=== PATIENT | female | born 1945 | race African-American/Black ===

== ENCOUNTER → 2016-04-17 | Outpatient (CLI) | payer MEDICARE ==
[2015-11-16 10:45] VITALS: BP 139/72
[~2016-04-17] MED LIST: ASCO10002 PO; DILT120C PO; LATANOPROST; LETR2.5T18 PO; METO25TA4 PO; MULT-245 PO; NAPR220C4 PO; PSYL0.5214 PO
--- NOTE | 2016-04-17 12:16 | RAD ---
2 view CXR: Clinical indications: Right-sided chest pain for 3 weeks. Pain wraps around the side to the back. Comparison: March 25, 2013. Findings: No acute lung infiltrate or pleural effusion or pulmonary edema or lung mass or pneumothorax is seen. Mild cardiomegaly is evident. The pulmonary vasculature, mediastinum and both princess are unremarkable. Enchondroma or bone infarct of the proximal left humerus is seen. Impression: No acute lung infiltrate. Mild cardiomegaly..
== END | disposition home or self-care (01) ==
LOC: RAD 11:41
PROVIDERS: ATTEND Internal Medicine Pulmonary Disease
DX: I51.7 Cardiomegaly (principal); R07.89 Other chest pain; D16.02 Benign neoplasm of scapula and long bones of left upper limb
CPT/HCPCS: 71020

== ENCOUNTER → 2016-09-18 | Outpatient (CLI) | payer OTHER ==
[2015-11-16 10:45] VITALS: BP 139/72
[~2016-09-18] MED LIST changes: -PSYL0.5214 PO; +PSYL0.5215 PO
--- NOTE | 2016-09-18 14:26 | RAD ---
Chest radiograph 09/18/2016 at 1300 hours Indication: chest pain. Pain in the right lower posterior rib margin Technique: PA and lateral views of the chest are provided. Comparison: 04/17/2016 Technique: Cardiomediastinal silhouette is within normal limits. No pleural effusions, pulmonary vascular congestion or pneumothorax. The lungs are clear. Mild degenerative changes of the thoracic spine. Mild osteoarthrosis of the acromioclavicular joints bilaterally. Impression: No acute cardiopulmonary process.
== END | disposition home or self-care (01) ==
LOC: RAD 12:43
PROVIDERS: ATTEND Internal Medicine Pulmonary Disease
DX: R07.9 Chest pain, unspecified (principal); M47.894 Other spondylosis, thoracic region; M19.012 Primary osteoarthritis, left shoulder; M19.011 Primary osteoarthritis, right shoulder
CPT/HCPCS: 71020

== ENCOUNTER 2016-11-07 12:42 | Observation (INO) | payer OTHER ==
[~2016-11-07] VITALS: Ht 157.5 cm; Wt 88.5 kg
[2016-11-07] MEDS ORDERED: HYDROmorphone 2 MG/ML VIAL IV PRN (13:45)
[2016-11-07] MEDS ORDERED: IV NORMAL SALINE 500ML BAG 500 ML IV ONE (14:00)
[2016-11-07 14:06] LABS: BASO # 0.1 x10^3/uL (0.0-0.2); BASO % 1 % (0-3); EOS % 1 % (0-3); HEMATOCRIT 37.5 % (36.0-47.0); HEMOGLOBIN 12.7 g/dL (12.0-15.5); LYMPH # 2.7 x10^3/uL (1.0-4.8); LYMPH % 30 % (24-48); MEAN CORPUSCULAR HEMOGLOBIN 27 pg (25-35); MEAN CORPUSCULAR HGB CONC 34 g/dL (31-37); MEAN CORPUSCULAR VOLUME 79 fL (79-100); MONO % 5 % (0-9); NEUT % 63 % (31-73); PLATELET COUNT 209 x10^3/uL (140-400); RED BLOOD COUNT 4.73 x10^6/uL (3.50-5.40); RED CELL DISTRIBUTION WIDTH 18.7 % (11.5-14.5)
[2016-11-07 14:22] LABS: CREATININE 0.8 mg/dL (0.6-1.0); GFR 85.3
--- NOTE | 2016-11-07 14:37 | RAD ---
Exam performed: CT scan of the head without contrast. Date of Service: 9116. Comparison: MRI brain from 10/23/15. Clinical History: Headache for 2 years, history of glaucoma and left breast cancer. Technique: Helical acquisitions are obtained from the foramen magnum to the vertex without intravenous administration of contrast. Findings: The ventricles are midline without evidence of dilatation. Mild atrophy is noted. Normal bustamante-white differentiation is maintained. There is no extra axial fluid collection, intraparenchymal hemorrhage or mass lesion. The visualized portions of the orbits, paranasal sinuses and the mastoid air cells appear clear. The calvarium is intact. Impression: 1. No acute intracranial process detected. PQRS Compliance Statement: One or more of the following individualized dose reduction techniques were utilized for this examination: 1. Automated exposure control 2. Adjustment of the mA and/or kV according to patient size 3. Use of iterative reconstruction technique
--- NOTE | 2016-11-07 14:49 | PHYS DOC ---
Past Medical History Past Medical History: Arthritis, Cancer, Diverticulosis, GERD, Glaucoma, Hypertension, Other Additional Past Medical Histor: Left breast ca, right upper lung nodule , CHRONIC HEADACHE Past Surgical History: Cancer Surgery, Hysterectomy Additional Past Surgical Histo: LEFT MASECTOMY Alcohol Use: None Drug Use: None Adult General Chief Complaint Chief Complaint: HEADACHE HPI HPI 71-year-old female presenting to the emergency department today with left-sided headache is nonradiating intermittent and is been present for last week. She has a history of chronic headaches which is similar to this one for which she sees our neurologist Dr. danielle. She has not taken anything for the headache in the last 7 days. She denies numbness weakness or tingling. She denies vision changes. She denies fevers chills or neck stiffness. Review of systems is negative for shortness of breath abdominal pain nausea vomiting. All other review of systems is negative unless otherwise noted in history of present illness. ED course: 71-year-old female presenting to the emergency department with headache similar to her previous headaches. Vital signs unremarkable other than mild chronic hypertension. Given the patient's age a head CT along with some basic blood work was obtained which was unremarkable. She was given IV fluids with hydromorphone for pain which improved her symptoms. She was subsequent discharged home. I considered temporal arteritis however the patient has nontender temporal artery, and her headache is not originating from the congregational. I feel this to be less likely given the patient's symptomatology. I also considered subarachnoid hemorrhage which I feel is less likely. I considered meningitis and felt this to be less likely as well. Discussing the case with our neurologist is been seeing the patient in clinic she is concerned that the patient may have temporal arteritis. Given her concern, the patient will be admitted for biopsy of the temporal artery. Review of Systems Review of Systems SEE ABOVE. Current Medications Current Medications Current Medications Medications (Trade) Dose Ordered Sig/Vicente Start Time Stop Time Status Last Admin Dose Admin Hydromorphone HCl (Dilaudid) 0.5 mg PRN Q30MIN PRN 11/07/16 13:45 11/07/16 16:07 DC 11/07/16 14:24 0.5 MG Morphine Sulfate 2 mg PRN Q2HR PRN 11/07/16 16:00 11/08/16 15:59 DC Ondansetron HCl (Zofran) 4 mg PRN Q8HRS PRN 11/07/16 16:00 11/08/16 15:59 DC Sodium Chloride 1,000 ml @ 125 mls/hr Q8H 11/07/16 16:00 11/08/16 15:59 DC 11/08/16 14:00 125 MLS/HR Allergies Allergies Physical Exam Physical Exam SEE ABOVE Constitutional: Well developed, well nourished, no acute distress, non-toxic appearance. [] HENT: Normocephalic, atraumatic, bilateral external ears normal, oropharynx moist, no oral exudates, nose normal. []Nontender temporal arteries bilaterally. Eyes: PERRLA, EOMI, conjunctiva normal, no discharge. [] Neck: Normal range of motion, no tenderness, supple, no stridor. [] Negative Brudzinski's sign. Negative Kernig sign. Normal range of motion of the neck. Cardiovascular:Heart rate regular rhythm, no murmur [] Lungs & Thorax: Bilateral breath sounds clear to auscultation [] Abdomen: Bowel sounds normal, soft, no tenderness, no masses, no pulsatile masses. [] Skin: Warm, dry, no erythema, no rash. [] Back: No tenderness, no CVA tenderness. [] Extremities: No tenderness, no cyanosis, no clubbing, ROM intact, no edema. [] Neurologic: Mental status: Awake oriented and alert x3 Cranial nerves: Extraocular movements intact, eyebrows pelon bilaterally smile symmetric, uvula elevation, shoulder shrug intact, tongue protrusion normal DTRs: 2+ Sensation: equal and normal in all extremities Strength: 5/5 in upper and lower extremities bilaterally Psychologic: Affect normal, judgement normal, mood normal. [] Current Patient Data Vital Signs Vital Signs Date Time Temp Pulse Resp B/P (MAP) Pulse Ox O2 Delivery O2 Flow Rate FiO2 11/07/16 14:54 86 18 142/88 (106) 97 Room Air 11/07/16 13:35 98.3 98.3 Lab Values Laboratory Tests Test 11/07/16 13:15 11/07/16 13:55 Erythrocyte Sedimentation Rate 54 (0-25) H Prothrombin Time 12.9 SEC (11.7-14.0) Prothrombin Time INR 1.0 (0.8-1.1) White Blood Count 9.0 x10^3/uL (4.0-11.0) Red Blood Count 4.73 x10^6/uL (3.50-5.40) Hemoglobin 12.7 g/dL (12.0-15.5) Hematocrit 37.5 % (36.0-47.0) Mean Corpuscular Volume 79 fL (79-100) Mean Corpuscular Hemoglobin 27 pg (25-35) Mean Corpuscular Hemoglobin Concent 34 g/dL (31-37) Red Cell Distribution Width 18.7 % (11.5-14.5) H Platelet Count 209 x10^3/uL (140-400) Neutrophils (%) (Auto) 63 % (31-73) Lymphocytes (%) (Auto) 30 % (24-48) Monocytes (%) (Auto) 5 % (0-9) Eosinophils (%) (Auto) 1 % (0-3) Basophils (%) (Auto) 1 % (0-3) Neutrophils # (Auto) 5.7 x10^3uL (1.8-7.7) Lymphocytes # (Auto) 2.7 x10^3/uL (1.0-4.8) Monocytes # (Auto) 0.5 x10^3/uL (0.0-1.1) Eosinophils # (Auto) 0.0 x10^3/uL (0.0-0.7) Basophils # (Auto) 0.1 x10^3/uL (0.0-0.2) Sodium Level 138 mmol/L (136-145) Potassium Level 4.0 mmol/L (3.5-5.1) Chloride Level 103 mmol/L (98-107) Carbon Dioxide Level 32 mmol/L (21-32) Anion Gap 3 (6-14) L Blood Urea Nitrogen 14 mg/dL (7-20) Creatinine 0.8 mg/dL (0.6-1.0) Estimated GFR (Cockcroft-Gault) 85.3 Glucose Level 95 mg/dL (70-99) Calcium Level 9.0 mg/dL (8.5-10.1) Laboratory Tests 11/07/16 13:55 Laboratory Tests 11/07/16 13:55 EKG EKG [] Radiology/Procedures Radiology/Procedures [] Course & Med Decision Making Course & Med Decision Making Pertinent Labs and Imaging studies reviewed. (See chart for details) [] Dragon Disclaimer Dragon Disclaimer This electronic medical record was generated, in whole or in part, using a voice recognition dictation system. Departure Departure Impression: Primary Impression: Headache Disposition: ADMITTED INPATIENT Condition: STABLE Referrals: RASHEEDA CORBIN MD (PCP) Patient Instructions: General Headache Without Cause GOPI SALAS MD Nov 07, 2016 14:49
[2016-11-07] MEDS ORDERED: ONDANSETRON PF 4 MG/2 ML VIAL. IV ONE (15:45)
[2016-11-07] MEDS ORDERED: MORPHINE SULFATE 2 MG/ML DISP.SYRIN. IV PRN ×2 (16:00→16:15)
[2016-11-07] MEDS ORDERED: ONDANSETRON PF 4 MG/2 ML VIAL. IV PRN ×2 (16:00→16:15)
--- NOTE | 2016-11-07 16:13 | PDOC1 ---
History and Physical Date of Admission Date of Admission 11/07/16 Identification/Chief Complaint Chief Complaint headache Problems: Source Source: Chart review, Patient History of Present Illness History of Present Illness HPI HPI 71-year-old female presenting to the emergency department today for headache. Pt said she has been having headache for years , following with dr. Giron,worse in the past week. pt got dilaudid in ER which made her feel drowsy and not willing to talk to me much. The headache is usually on the top of head, or left side. Now the pain is 6/10, tight. She also feels left face numbness. right fingers some numbness, otherwise no blurry vision or other neurologic deficit. . She denies fevers chills or neck stiffness. No V, diarrhea, cough, chest pain , or sob. + nausea. pt usually only takes tylenol for headache, and codein makes her rash. head ct NEG. Past Medical History Cardiovascular: HTN Past Surgical History Past Surgical History left Breast post lumpectomy Family History Family History: Hypertension Social History Smoke: No ALCOHOL: none Drugs: None Current Problem List Problem List Problems Medical Problems: (1) Headache Status: Acute Current Medications Current Medications Current Medications Medications (Trade) Dose Ordered Sig/Vicente Start Time Stop Time Status Last Admin Dose Admin Hydromorphone HCl (Dilaudid) 0.5 mg PRN Q30MIN PRN 11/07/16 13:45 11/07/16 14:24 0.5 MG Morphine Sulfate 2 mg PRN Q2HR PRN 11/07/16 16:00 11/08/16 15:59 Ondansetron HCl (Zofran) 4 mg PRN Q8HRS PRN 11/07/16 16:00 11/08/16 15:59 Sodium Chloride 1,000 ml @ 125 mls/hr Q8H 11/07/16 16:00 11/08/16 15:59 Allergies Allergies Allergies Coded Allergies Type Severity Reaction Last Updated Verified codeine Allergy Intermediate Rash 01/21/15 Yes ROS Review of System CONSTITUTIONAL: No fever or chills EYES: No recent changes SKIN: No rash or itching CARDIOVASCULAR: No chest pain, syncope, palpitations, or edema RESPIRATORY: No SOB or cough GASTROINTESTINAL: No nausea, vomiting or abdominal pain NEUROLOGICAL: No headaches or weakness ENDOCRINE: No cold or heat intolerance GENITOURINARY: No urgency or frequency of urination MUSCULOSKELETAL: No back pain or joint pain LYMPHATICS: No enlarged lymph nodes PSYCHIATRIC: No anxiety or depression Physical Exam Physical Exam GEN.: No apparent distress. Alert and oriented. HEENT: Head is normocephalic, atraumatic. head no tenderness. NECK: Supple. LUNGS: Clear to auscultation. HEART: RRR, S1, S2 present. Peripheral pulses intact ABDOMEN: Soft, nontender. Positive bowel sounds. EXTREMITIES: Without any cyanosis. NEUROLOGIC: Normal speech, normal tone PSYCHIATRIC: Normal affect, normal mood. SKIN: No ulcerations Vitals Vitals Vital Signs Date Time Temp Pulse Resp B/P (MAP) Pulse Ox O2 Delivery O2 Flow Rate FiO2 11/07/16 14:54 86 18 142/88 (106) 97 Room Air 11/07/16 13:35 98.3 98.3 Labs Labs Laboratory Tests Test 11/07/16 13:55 White Blood Count 9.0 x10^3/uL (4.0-11.0) Red Blood Count 4.73 x10^6/uL (3.50-5.40) Hemoglobin 12.7 g/dL (12.0-15.5) Hematocrit 37.5 % (36.0-47.0) Mean Corpuscular Volume 79 fL (79-100) Mean Corpuscular Hemoglobin 27 pg (25-35) Mean Corpuscular Hemoglobin Concent 34 g/dL (31-37) Red Cell Distribution Width 18.7 % (11.5-14.5) Platelet Count 209 x10^3/uL (140-400) Neutrophils (%) (Auto) 63 % (31-73) Lymphocytes (%) (Auto) 30 % (24-48) Monocytes (%) (Auto) 5 % (0-9) Eosinophils (%) (Auto) 1 % (0-3) Basophils (%) (Auto) 1 % (0-3) Neutrophils # (Auto) 5.7 x10^3uL (1.8-7.7) Lymphocytes # (Auto) 2.7 x10^3/uL (1.0-4.8) Monocytes # (Auto) 0.5 x10^3/uL (0.0-1.1) Eosinophils # (Auto) 0.0 x10^3/uL (0.0-0.7) Basophils # (Auto) 0.1 x10^3/uL (0.0-0.2) Sodium Level 138 mmol/L (136-145) Potassium Level 4.0 mmol/L (3.5-5.1) Chloride Level 103 mmol/L (98-107) Carbon Dioxide Level 32 mmol/L (21-32) Anion Gap 3 (6-14) Blood Urea Nitrogen 14 mg/dL (7-20) Creatinine 0.8 mg/dL (0.6-1.0) Estimated GFR (Cockcroft-Gault) 85.3 Glucose Level 95 mg/dL (70-99) Calcium Level 9.0 mg/dL (8.5-10.1) Laboratory Tests Test 11/07/16 13:55 White Blood Count 9.0 x10^3/uL (4.0-11.0) Red Blood Count 4.73 x10^6/uL (3.50-5.40) Hemoglobin 12.7 g/dL (12.0-15.5) Hematocrit 37.5 % (36.0-47.0) Mean Corpuscular Volume 79 fL (79-100) Mean Corpuscular Hemoglobin 27 pg (25-35) Mean Corpuscular Hemoglobin Concent 34 g/dL (31-37) Red Cell Distribution Width 18.7 % (11.5-14.5) Platelet Count 209 x10^3/uL (140-400) Neutrophils (%) (Auto) 63 % (31-73) Lymphocytes (%) (Auto) 30 % (24-48) Monocytes (%) (Auto) 5 % (0-9) Eosinophils (%) (Auto) 1 % (0-3) Basophils (%) (Auto) 1 % (0-3) Neutrophils # (Auto) 5.7 x10^3uL (1.8-7.7) Lymphocytes # (Auto) 2.7 x10^3/uL (1.0-4.8) Monocytes # (Auto) 0.5 x10^3/uL (0.0-1.1) Eosinophils # (Auto) 0.0 x10^3/uL (0.0-0.7) Basophils # (Auto) 0.1 x10^3/uL (0.0-0.2) Sodium Level 138 mmol/L (136-145) Potassium Level 4.0 mmol/L (3.5-5.1) Chloride Level 103 mmol/L (98-107) Carbon Dioxide Level 32 mmol/L (21-32) Anion Gap 3 (6-14) Blood Urea Nitrogen 14 mg/dL (7-20) Creatinine 0.8 mg/dL (0.6-1.0) Estimated GFR (Cockcroft-Gault) 85.3 Glucose Level 95 mg/dL (70-99) Calcium Level 9.0 mg/dL (8.5-10.1) VTE Prophylaxis Ordered VTE Prophylaxis Devices: Yes VTE Pharmacological Prophylaxi: Yes Assessment/Plan Assessment/Plan intractable headache, 2/2 migraine flare? HTN glaucoma diverticulosis h/o Left BCa post sx chronic headache GERD plan; fu with dr. Giron, ESR pending, would like to rule out temp Arteritis, sx fu cont home meds pain control dvt ppx ELI BURNS MD Nov 07, 2016 16:13
[2016-11-07] MEDS ORDERED: traMADol 50 MG TABLET PO PRN (16:15)
[2016-11-07] MEDS ORDERED: ACETAMINOPHEN 325 MG TABLET. PO PRN (16:15)
[2016-11-07] MEDS ORDERED: DOCUSATE SODIUM 100 MG CAPSULE. PO PRN (16:15)
[2016-11-07] MEDS ORDERED: hydrALAZINE 20 MG/ML VIAL. IVP PRN (16:15)
[2016-11-07 16:56] LABS: PROTHROMBIN TIME PATIENT 12.9 SEC (11.7-14.0)
[2016-11-07] MEDS ORDERED: AMLO5TAB2 PO (17:20)
[2016-11-07] MEDS ORDERED: predniSONE 10 MG TABLET PO SCH (17:30)
[2016-11-07 18:30] VITALS: BP_SYST 123; BP_SYST 139; BP_DIAS 45; BP_DIAS 84
[2016-11-07 19:00] VITALS: BP 123/84
--- NOTE | 2016-11-07 20:47 | PDOC2 ---
NEUROLOGY CONSULT Date of Admission Date of Admission DATE: 11/07/16 TIME: 20:36 Reason for Consult Reason for Consult: IMPRESSION: Worsening of headaches. Pain in left orbital. Temporal A arteritis? Chronic headaches. HTN Anxiety. Elevated ESR. RECOMMENDATIONS/PLAN: Pain control. Consulted Surgery for left temporal A biopsy. Trial treatment with steroid can be started after biopsy. Tegretol as home regimen. HISTORY OF THE PRESENT ILLNESS: 71-y-old AA female patient with Hx of chronic pain in her left frontal and temporal head and pain behind left orbital area. She received extensive evaluation including brain MRI but no evidence of CVA or brain tumor.She was seen by ophthalmology and was said to have cataract and partial retinal detachment (?). She has increased pain in her left side of head and elevated ESR so temporal A arteritis needs to be ruled. Past Medical History Cardiovascular: HTN Past Surgical History left Breast post lumpectomy Family History Hypertension Social History Smoke: No ALCOHOL: none Drugs: None ALLERGY: Reviewed. REVIEW OF SYSTEMS: Constitutional: No malnutrition, weight loss, cachexia. Head: No traumatic brain or head injury. Skin: No edema, or rash. Ear: No infection. Eyes: No vision loss or color blindness. Nose: No bleeding or purulent discharges. Hearing: No hearing decrease. Neck: No injury. Cardiac: HTN. Pulmonary: No COPD. GI: No GI ulcer, GI bleeding. Urinary/genital: UTI. Endocrinologic: No cousin face, craniofacial dysmorphism, polydactyly, goiter. Skeletomuscular: No muscular atrophy, deformity. Neurological: see HP. Psychiatric: Denies drug use/abuse. Otherwise, not [id number] review of systems. PHYSICAL EXAMINATION: General appearance is in subacute distress. HEENT: Normocephalic and nontraumatic. Eyes, nose, ears, and throat are unremarkable. Neck is supple. No lymphadenopathy. No bruits are heard over the carotid artery. No crepitus. Cardiovascular: S1, S2, regular rate and rhythm. Pulmonary: Clear to auscultation bilaterally. Abdomen: Bowel sounds are positive. Abdomen is soft, nontender, and nondistended. Extremities: No rash, lesions, or edema. No restriction of range of motion NEUROLOGICAL EXAMINATION: Alert Oriented to time, place and person. PERRL. EOMI. CN: no focal findings. Muscle tone: within normal. Muscle strength: 5- DTR: 2 Plantar reflex: Flexor response bilaterally Gait: not examined in bed. Sensory exam: no abnormal findings. No acute cerebellar signs elicited. F-T-N test accurate. Current Medications Current Medications Current Medications Sodium Chloride 500 ml @ 500 mls/hr 1X ONCE IV Last administered on 11/07/16 14:25; Start 11/07/16 at 14:00; Stop 11/07/16 at 14:59; Status DC Hydromorphone HCl (Dilaudid) 0.5 mg PRN Q30MIN PRN IV SEVERE PAIN Last administered on 11/07/16 14:24; Start 11/07/16 at 13:45; Stop 11/07/16 at 16:07; Status DC Ondansetron HCl (Zofran) 4 mg 1X ONCE IV Last administered on 11/07/16 15:46; Start 11/07/16 at 15:45; Stop 11/07/16 at 15:46; Status DC Ondansetron HCl (Zofran) 4 mg PRN Q8HRS PRN IV NAUSEA/VOMITING; Start 11/07/16 at 16:00; Stop 11/08/16 at 15:59 Morphine Sulfate 2 mg PRN Q2HR PRN IV PAIN; Start 11/07/16 at 16:00; Stop at 15:59 Sodium Chloride 1,000 ml @ 125 mls/hr Q8H IV ; Start 11/07/16 at 16:00; Stop 11/08/16 at 15:59 Diltiazem HCl (Cardizem 24hr Cd) 120 mg DAILY PO ; Start 11/08/16 at 09:00 Acetaminophen (Tylenol) 650 mg PRN Q6HRS PRN PO FEVER; Start 11/07/16 at 16:15 Ondansetron HCl (Zofran) 4 mg PRN Q6HRS PRN IV NAUSEA/VOMITING; Start 11/07/16 at 16:15 Morphine Sulfate 2 mg PRN Q2HR PRN IV PAIN; Start 11/07/16 at 16:15 Tramadol HCl (Ultram) 50 mg PRN Q6HRS PRN PO PAIN; Start 11/07/16 at 16:15 Hydralazine HCl (Apresoline) 10 mg PRN Q4HRS PRN IVP ELEVATED BP, SEE COMMENTS ; Start 11/07/16 at 16:15 Docusate Sodium (Colace) 100 mg PRN DAILY PRN PO CONSTIPATION; Start 11/07/16 at 16:15 Heparin Sodium (Porcine) (Heparin Sq) 5,000 unit Q8HRS SQ ; Start 11/07/16 at 22: 00 Prednisone (Prednisone) 30 mg DAILY PO ; Start 11/07/16 at 17:30; Stop 11/07/16 at 17:47; Status DC Famotidine (Pepcid) 20 mg QHS PO ; Start 11/07/16 at 21:00 Active Scripts Active Reported Amlodipine Besylate 5 Mg Tablet 5 Mg PO HS Metamucil (Psyllium Husk) 0.52 Gm Capsule 0.52 Gm PO DAILY Allergies Allergies: Coded Allergies: codeine (Verified Allergy, Intermediate, Rash, 01/21/15) Vitals VITALS Vital Signs Date Time Temp Pulse Resp B/P (MAP) Pulse Ox O2 Delivery O2 Flow Rate FiO2 11/07/16 19:00 98.1 75 123/84 (97) 92 Room Air 98.1 11/07/16 18:30 18 Labs Labs Laboratory Tests Test 11/07/16 13:15 11/07/16 13:55 Erythrocyte Sedimentation Rate 54 (0-25) Prothrombin Time 12.9 SEC (11.7-14.0) Prothromb Time International Ratio 1.0 (0.8-1.1) White Blood Count 9.0 x10^3/uL (4.0-11.0) Red Blood Count 4.73 x10^6/uL (3.50-5.40) Hemoglobin 12.7 g/dL (12.0-15.5) Hematocrit 37.5 % (36.0-47.0) Mean Corpuscular Volume 79 fL (79-100) Mean Corpuscular Hemoglobin 27 pg (25-35) Mean Corpuscular Hemoglobin Concent 34 g/dL (31-37) Red Cell Distribution Width 18.7 % (11.5-14.5) Platelet Count 209 x10^3/uL (140-400) Neutrophils (%) (Auto) 63 % (31-73) Lymphocytes (%) (Auto) 30 % (24-48) Monocytes (%) (Auto) 5 % (0-9) Eosinophils (%) (Auto) 1 % (0-3) Basophils (%) (Auto) 1 % (0-3) Neutrophils # (Auto) 5.7 x10^3uL (1.8-7.7) Lymphocytes # (Auto) 2.7 x10^3/uL (1.0-4.8) Monocytes # (Auto) 0.5 x10^3/uL (0.0-1.1) Eosinophils # (Auto) 0.0 x10^3/uL (0.0-0.7) Basophils # (Auto) 0.1 x10^3/uL (0.0-0.2) Sodium Level 138 mmol/L (136-145) Potassium Level 4.0 mmol/L (3.5-5.1) Chloride Level 103 mmol/L (98-107) Carbon Dioxide Level 32 mmol/L (21-32) Anion Gap 3 (6-14) Blood Urea Nitrogen 14 mg/dL (7-20) Creatinine 0.8 mg/dL (0.6-1.0) Estimated GFR (Cockcroft-Gault) 85.3 Glucose Level 95 mg/dL (70-99) Calcium Level 9.0 mg/dL (8.5-10.1) Laboratory Tests Test 11/07/16 13:15 11/07/16 13:55 Erythrocyte Sedimentation Rate 54 (0-25) Prothrombin Time 12.9 SEC (11.7-14.0) Prothromb Time International Ratio 1.0 (0.8-1.1) White Blood Count 9.0 x10^3/uL (4.0-11.0) Red Blood Count 4.73 x10^6/uL (3.50-5.40) Hemoglobin 12.7 g/dL (12.0-15.5) Hematocrit 37.5 % (36.0-47.0) Mean Corpuscular Volume 79 fL (79-100) Mean Corpuscular Hemoglobin 27 pg (25-35) Mean Corpuscular Hemoglobin Concent 34 g/dL (31-37) Red Cell Distribution Width 18.7 % (11.5-14.5) Platelet Count 209 x10^3/uL (140-400) Neutrophils (%) (Auto) 63 % (31-73) Lymphocytes (%) (Auto) 30 % (24-48) Monocytes (%) (Auto) 5 % (0-9) Eosinophils (%) (Auto) 1 % (0-3) Basophils (%) (Auto) 1 % (0-3) Neutrophils # (Auto) 5.7 x10^3uL (1.8-7.7) Lymphocytes # (Auto) 2.7 x10^3/uL (1.0-4.8) Monocytes # (Auto) 0.5 x10^3/uL (0.0-1.1) Eosinophils # (Auto) 0.0 x10^3/uL (0.0-0.7) Basophils # (Auto) 0.1 x10^3/uL (0.0-0.2) Sodium Level 138 mmol/L (136-145) Potassium Level 4.0 mmol/L (3.5-5.1) Chloride Level 103 mmol/L (98-107) Carbon Dioxide Level 32 mmol/L (21-32) Anion Gap 3 (6-14) Blood Urea Nitrogen 14 mg/dL (7-20) Creatinine 0.8 mg/dL (0.6-1.0) Estimated GFR (Cockcroft-Gault) 85.3 Glucose Level 95 mg/dL (70-99) Calcium Level 9.0 mg/dL (8.5-10.1) TETO HADLEY MD Nov 07, 2016 20:47
[2016-11-07] MEDS: IV NORMAL SALINE 1000ML BAG 1,000 ML IV SCH ×2 (20:59→23:28)
[2016-11-07] MEDS ORDERED: FAMOTIDINE 20 MG TABLET. PO SCH (21:00)
[2016-11-07] MEDS: HEPARIN PF for SUB-Q USE 5,000 UNIT/0.5 ML VIAL. SQ SCH (21:05)
[2016-11-07 23:00] VITALS: BP 150/88
[2016-11-08 03:00] VITALS: BP 131/69
[2016-11-08] MEDS: HEPARIN PF for SUB-Q USE 5,000 UNIT/0.5 ML VIAL. SQ SCH ×3 (06:09→21:24)
[2016-11-08 06:49] LABS: BASO # 0.1 x10^3/uL (0.0-0.2); BASO % 1 % (0-3); EOS % 0 % (0-3); HEMATOCRIT 37.5 % (36.0-47.0); HEMOGLOBIN 12.7 g/dL (12.0-15.5); LYMPH # 3.4 x10^3/uL (1.0-4.8); LYMPH % 30 % (24-48); MEAN CORPUSCULAR HEMOGLOBIN 27 pg (25-35); MEAN CORPUSCULAR HGB CONC 34 g/dL (31-37); MEAN CORPUSCULAR VOLUME 79 fL (79-100); MONO % 6 % (0-9); NEUT % 63 % (31-73); PLATELET COUNT 193 x10^3/uL (140-400); RED BLOOD COUNT 4.74 x10^6/uL (3.50-5.40); RED CELL DISTRIBUTION WIDTH 18.5 % (11.5-14.5); WHITE BLOOD COUNT 11.6 x10^3/uL (4.0-11.0)
[2016-11-08 07:00] VITALS: BP 145/73
[2016-11-08 07:14] LABS: CALCIUM 8.7 mg/dL (8.5-10.1); CREATININE 0.6 mg/dL (0.6-1.0); GFR 118.9; POTASSIUM 3.8 mmol/L (3.5-5.1)
[2016-11-08] MEDS: IV NORMAL SALINE 1000ML BAG 1,000 ML IV SCH ×2 (08:00→14:00)
[2016-11-08] MEDS: PSYLLIUM HUSK (SUGAR FREE) 1 PKT PACKET PO SCH (10:00)
[2016-11-08 11:10] VITALS: BP 131/71
--- NOTE | 2016-11-08 13:10 | PDOC2 ---
CONSULT Date of Consult Date of Consult DATE: 11/08/16 TIME: 13:07 History of Present Illness Reason for Visit: The patient is a 71 year old female who was admitted with headaches. She reports left frontal and temporal headaches for quite some time. Neurology was consulted and a sed rate was found to be elevated. Surgery was consulted for a left temporal artery biopsy. Past Medical History Cardiovascular: HTN Past Surgical History Past Surgical History breast lumpectomy Family History Family History: Hypertension Social History No ALCOHOL: none Drugs: None Current Problem List Problem List Problems Medical Problems: (1) Headache Status: Acute Current Medications Current Medications Current Medications Sodium Chloride 500 ml @ 500 mls/hr 1X ONCE IV Last administered on 11/07/16 14:25; Start 11/07/16 at 14:00; Stop 11/07/16 at 14:59; Status DC Hydromorphone HCl (Dilaudid) 0.5 mg PRN Q30MIN PRN IV SEVERE PAIN Last administered on 11/07/16 14:24; Start 11/07/16 at 13:45; Stop 11/07/16 at 16:07; Status DC Ondansetron HCl (Zofran) 4 mg 1X ONCE IV Last administered on 11/07/16 15:46; Start 11/07/16 at 15:45; Stop 11/07/16 at 15:46; Status DC Ondansetron HCl (Zofran) 4 mg PRN Q8HRS PRN IV NAUSEA/VOMITING; Start 11/07/16 at 16:00; Stop 11/08/16 at 15:59 Morphine Sulfate 2 mg PRN Q2HR PRN IV PAIN; Start 11/07/16 at 16:00; Stop at 15:59 Sodium Chloride 1,000 ml @ 125 mls/hr Q8H IV Last administered on 11/07/16 20: 59; Start 11/07/16 at 16:00; Stop 11/08/16 at 15:59 Diltiazem HCl (Cardizem 24hr Cd) 120 mg DAILY PO ; Start 11/08/16 at 09:00; Stop 11/08/16 at 09:30; Status DC Acetaminophen (Tylenol) 650 mg PRN Q6HRS PRN PO FEVER; Start 11/07/16 at 16:15 Ondansetron HCl (Zofran) 4 mg PRN Q6HRS PRN IV NAUSEA/VOMITING; Start 11/07/16 at 16:15 Morphine Sulfate 2 mg PRN Q2HR PRN IV PAIN; Start 11/07/16 at 16:15 Tramadol HCl (Ultram) 50 mg PRN Q6HRS PRN PO PAIN; Start 11/07/16 at 16:15 Hydralazine HCl (Apresoline) 10 mg PRN Q4HRS PRN IVP ELEVATED BP, SEE COMMENTS ; Start 11/07/16 at 16:15 Docusate Sodium (Colace) 100 mg PRN DAILY PRN PO CONSTIPATION; Start 11/07/16 at 16:15 Heparin Sodium (Porcine) (Heparin Sq) 5,000 unit Q8HRS SQ Last administered on 11/08/16t 06:09; Start 11/07/16 at 22:00 Prednisone (Prednisone) 30 mg DAILY PO ; Start 11/07/16 at 17:30; Stop 11/07/16 at 17:47; Status DC Famotidine (Pepcid) 20 mg QHS PO ; Start 11/07/16 at 21:00; Stop 11/08/16 at 09:53 ; Status DC Amlodipine Besylate (Norvasc) 5 mg HS PO ; Start 11/08/16 at 21:00 Psyllium Hydrophilic Mucilloid (Metamucil Fiber Packet) 1 pkt DAILY PO ; Start 11/08/16 at 10:00 Active Scripts Active Reported Amlodipine Besylate 5 Mg Tablet 5 Mg PO HS Metamucil (Psyllium Husk) 0.52 Gm Capsule 0.52 Gm PO DAILY Allergies Allergies: Coded Allergies: codeine (Verified Allergy, Intermediate, Rash, 01/21/15) ROS General: No: Chills, Night Sweats, Fatigue, Malaise, Appetite, Other PSYCHOLOGICAL ROS: No: Anxiety, Behavioral Disorder, Concentration difficultie , Decreased libido, Depression, Disorientation, Hallucinations, Hostility, Irritablity, Memory difficulties, Mood Swings, Obsessive thoughts, Physical abuse, Sexual abuse, Sleep disturbances, Suicidal ideation, Other Eyes: No Blurry vision, No Decreased vision, No Double vision, No Dry eyes, No Excessive tearing, No Eye Pain, No Itchy Eyes, No Loss of vision, No Photophobia , No Scotomata, No Uses contacts, No Uses glasses, No Other ALLERGY AND IMMUNOLOGY: No: Hives, Insect Bite Sensitivity, Itchy/Watery Eyes, Nasal Congestion, Post Nasal Drip, Seasonal Allergies, Other Hematological and Lymphatic: No: Bleeding Problems, Blood Clots, Blood Transfusions, Brusing, Night Sweats, Pallor, Swollen Lymph Nodes, Other ENDOCRINE: No: Breast Changes, Galactorrhea, Hair Pattern Changes, Hot Flashes , Malaise/lethargy, Mood Swings, Palpitations, Polydipsia/polyuria, Skin Changes , Temperature Intolerance, Unexpected Weight Changes, Other Respiratory: No: Cough, Hemoptysis, Orthopnea, Pleuritic Pain, Shortness of breath, SOB with excertion, Sputum Changes, Stridor, Tachypnea, Wheezing, Other Cardiovascular: No Chest Pain, No Palpitations, No Orthopnea, No Paroxysmal Noc. Dyspnea, No Edema, No Lt Headedness, No Other Gastrointestinal: No Nausea, No Vomiting, No Abdominal Pain, No Diarrhea, No Constipation, No Melena, No Hematochezia, No Other Genitourinary: No Dysuria, No Frequency, No Incontinence, No Hematuria, No Retention, No Discharge, No Urgency, No Pain, No Flank Pain, No Other, No , No , No , No , No , No , No Musculoskeletal: No Gait Disturbance, No Joint Pain, No Joint Stiffness, No Joint Swelling, No Muscle Pain, No Muscular Weakness, No Pain In:, No Swelling In:, No Other Neurological: Yes Headaches Skin: No Dry Skin, No Eczema, No Hair Changes, No Lumps, No Mole Changes, No Mottling, No Nail Changes, No Pruritus, No Rash, No Skin Lesion Changes, No Other, No Acne Physical Exam General: Alert, Oriented X3, Cooperative HEENT: Atraumatic, Other (normal temporal artery pulsations bilat) Lungs: Clear to auscultation Abdomen: Normal bowel sounds, Soft Extremities: No clubbing, No cyanosis Skin: No rashes, No breakdown Neuro: Normal speech Psych/Mental Status: Mental status NL Vitals VITALS Vital Signs Date Time Temp Pulse Resp B/P (MAP) Pulse Ox O2 Delivery O2 Flow Rate FiO2 11/08/16 11:10 97.7 86 16 131/71 (91) 98 Room Air 97.7 Labs Labs Laboratory Tests Test 11/07/16 13:15 11/07/16 13:55 9/2/17 06:35 Erythrocyte Sedimentation Rate 54 (0-25) Prothrombin Time 12.9 SEC (11.7-14.0) Prothromb Time International Ratio 1.0 (0.8-1.1) White Blood Count 9.0 x10^3/uL (4.0-11.0) 11.6 x10^3/uL (4.0-11.0) Red Blood Count 4.73 x10^6/uL (3.50-5.40) 4.74 x10^6/uL (3.50-5.40) Hemoglobin 12.7 g/dL (12.0-15.5) 12.7 g/dL (12.0-15.5) Hematocrit 37.5 % (36.0-47.0) 37.5 % (36.0-47.0) Mean Corpuscular Volume 79 fL (79-100) 79 fL (79-100) Mean Corpuscular Hemoglobin 27 pg (25-35) 27 pg (25-35) Mean Corpuscular Hemoglobin Concent 34 g/dL (31-37) 34 g/dL (31-37) Red Cell Distribution Width 18.7 % (11.5-14.5) 18.5 % (11.5-14.5) Platelet Count 209 x10^3/uL (140-400) 193 x10^3/uL (140-400) Neutrophils (%) (Auto) 63 % (31-73) 63 % (31-73) Lymphocytes (%) (Auto) 30 % (24-48) 30 % (24-48) Monocytes (%) (Auto) 5 % (0-9) 6 % (0-9) Eosinophils (%) (Auto) 1 % (0-3) 0 % (0-3) Basophils (%) (Auto) 1 % (0-3) 1 % (0-3) Neutrophils # (Auto) 5.7 x10^3uL (1.8-7.7) 7.3 x10^3uL (1.8-7.7) Lymphocytes # (Auto) 2.7 x10^3/uL (1.0-4.8) 3.4 x10^3/uL (1.0-4.8) Monocytes # (Auto) 0.5 x10^3/uL (0.0-1.1) 0.7 x10^3/uL (0.0-1.1) Eosinophils # (Auto) 0.0 x10^3/uL (0.0-0.7) 0.0 x10^3/uL (0.0-0.7) Basophils # (Auto) 0.1 x10^3/uL (0.0-0.2) 0.1 x10^3/uL (0.0-0.2) Sodium Level 138 mmol/L (136-145) 142 mmol/L (136-145) Potassium Level 4.0 mmol/L (3.5-5.1) 3.8 mmol/L (3.5-5.1) Chloride Level 103 mmol/L (98-107) 105 mmol/L (98-107) Carbon Dioxide Level 32 mmol/L (21-32) 29 mmol/L (21-32) Anion Gap 3 (6-14) 8 (6-14) Blood Urea Nitrogen 14 mg/dL (7-20) 7 mg/dL (7-20) Creatinine 0.8 mg/dL (0.6-1.0) 0.6 mg/dL (0.6-1.0) Estimated GFR (Cockcroft-Gault) 85.3 118.9 Glucose Level 95 mg/dL (70-99) 82 mg/dL (70-99) Calcium Level 9.0 mg/dL (8.5-10.1) 8.7 mg/dL (8.5-10.1) Laboratory Tests Test 11/07/16 13:15 11/07/16 13:55 11/08/16 06:35 Erythrocyte Sedimentation Rate 54 (0-25) Prothrombin Time 12.9 SEC (11.7-14.0) Prothromb Time International Ratio 1.0 (0.8-1.1) White Blood Count 9.0 x10^3/uL (4.0-11.0) 11.6 x10^3/uL (4.0-11.0) Red Blood Count 4.73 x10^6/uL (3.50-5.40) 4.74 x10^6/uL (3.50-5.40) Hemoglobin 12.7 g/dL (12.0-15.5) 12.7 g/dL (12.0-15.5) Hematocrit 37.5 % (36.0-47.0) 37.5 % (36.0-47.0) Mean Corpuscular Volume 79 fL (79-100) 79 fL (79-100) Mean Corpuscular Hemoglobin 27 pg (25-35) 27 pg (25-35) Mean Corpuscular Hemoglobin Concent 34 g/dL (31-37) 34 g/dL (31-37) Red Cell Distribution Width 18.7 % (11.5-14.5) 18.5 % (11.5-14.5) Platelet Count 209 x10^3/uL (140-400) 193 x10^3/uL (140-400) Neutrophils (%) (Auto) 63 % (31-73) 63 % (31-73) Lymphocytes (%) (Auto) 30 % (24-48) 30 % (24-48) Monocytes (%) (Auto) 5 % (0-9) 6 % (0-9) Eosinophils (%) (Auto) 1 % (0-3) 0 % (0-3) Basophils (%) (Auto) 1 % (0-3) 1 % (0-3) Neutrophils # (Auto) 5.7 x10^3uL (1.8-7.7) 7.3 x10^3uL (1.8-7.7) Lymphocytes # (Auto) 2.7 x10^3/uL (1.0-4.8) 3.4 x10^3/uL (1.0-4.8) Monocytes # (Auto) 0.5 x10^3/uL (0.0-1.1) 0.7 x10^3/uL (0.0-1.1) Eosinophils # (Auto) 0.0 x10^3/uL (0.0-0.7) 0.0 x10^3/uL (0.0-0.7) Basophils # (Auto) 0.1 x10^3/uL (0.0-0.2) 0.1 x10^3/uL (0.0-0.2) Sodium Level 138 mmol/L (136-145) 142 mmol/L (136-145) Potassium Level 4.0 mmol/L (3.5-5.1) 3.8 mmol/L (3.5-5.1) Chloride Level 103 mmol/L (98-107) 105 mmol/L (98-107) Carbon Dioxide Level 32 mmol/L (21-32) 29 mmol/L (21-32) Anion Gap 3 (6-14) 8 (6-14) Blood Urea Nitrogen 14 mg/dL (7-20) 7 mg/dL (7-20) Creatinine 0.8 mg/dL (0.6-1.0) 0.6 mg/dL (0.6-1.0) Estimated GFR (Cockcroft-Gault) 85.3 118.9 Glucose Level 95 mg/dL (70-99) 82 mg/dL (70-99) Calcium Level 9.0 mg/dL (8.5-10.1) 8.7 mg/dL (8.5-10.1) Assessment/Plan Assessment/Plan L sided headaches, request for left temporal artery biopsy. I discussed the details and risks of surgery with the patient. She understands and would like to proceed. Will schedule in AM / LILIBETH SANFORD MD Nov 08, 2016 13:09
--- NOTE | 2016-11-08 13:37 | PDOC ---
PROGRESS NOTES Chief Complaint Chief Complaint intractable headache, 2/2 migraine flare? HTN glaucoma diverticulosis h/o Left BCa post sx chronic headache GERD leukocytosis, reactive plan; fu with dr. Giron, ESR pending, would like to rule out temp Arteritis, sx fu, plan to do left temporal A bx 9/3 am cont home meds pain control dvt ppx hold prednisone for now History of Present Illness History of Present Illness ROS: no fever, chills, sob or chest pain headache better at 6/10 afraid to use narcotics Vitals Vitals Vital Signs Date Time Temp Pulse Resp B/P (MAP) Pulse Ox O2 Delivery O2 Flow Rate FiO2 11/08/16 11:10 97.7 86 16 131/71 (91) 98 Room Air 97.7 Physical Exam General: Alert, Oriented X3, Cooperative Heart: Regular rate, Normal S1, Normal S2 Lungs: Clear Abdomen: Normal bowel sounds, Soft Extremities: No clubbing, No cyanosis Skin: No rashes, No breakdown Labs LABS Laboratory Tests Test 11/07/16 13:55 11/08/16 06:35 White Blood Count 9.0 x10^3/uL (4.0-11.0) 11.6 x10^3/uL (4.0-11.0) Red Blood Count 4.73 x10^6/uL (3.50-5.40) 4.74 x10^6/uL (3.50-5.40) Hemoglobin 12.7 g/dL (12.0-15.5) 12.7 g/dL (12.0-15.5) Hematocrit 37.5 % (36.0-47.0) 37.5 % (36.0-47.0) Mean Corpuscular Volume 79 fL (79-100) 79 fL (79-100) Mean Corpuscular Hemoglobin 27 pg (25-35) 27 pg (25-35) Mean Corpuscular Hemoglobin Concent 34 g/dL (31-37) 34 g/dL (31-37) Red Cell Distribution Width 18.7 % (11.5-14.5) 18.5 % (11.5-14.5) Platelet Count 209 x10^3/uL (140-400) 193 x10^3/uL (140-400) Neutrophils (%) (Auto) 63 % (31-73) 63 % (31-73) Lymphocytes (%) (Auto) 30 % (24-48) 30 % (24-48) Monocytes (%) (Auto) 5 % (0-9) 6 % (0-9) Eosinophils (%) (Auto) 1 % (0-3) 0 % (0-3) Basophils (%) (Auto) 1 % (0-3) 1 % (0-3) Neutrophils # (Auto) 5.7 x10^3uL (1.8-7.7) 7.3 x10^3uL (1.8-7.7) Lymphocytes # (Auto) 2.7 x10^3/uL (1.0-4.8) 3.4 x10^3/uL (1.0-4.8) Monocytes # (Auto) 0.5 x10^3/uL (0.0-1.1) 0.7 x10^3/uL (0.0-1.1) Eosinophils # (Auto) 0.0 x10^3/uL (0.0-0.7) 0.0 x10^3/uL (0.0-0.7) Basophils # (Auto) 0.1 x10^3/uL (0.0-0.2) 0.1 x10^3/uL (0.0-0.2) Sodium Level 138 mmol/L (136-145) 142 mmol/L (136-145) Potassium Level 4.0 mmol/L (3.5-5.1) 3.8 mmol/L (3.5-5.1) Chloride Level 103 mmol/L (98-107) 105 mmol/L (98-107) Carbon Dioxide Level 32 mmol/L (21-32) 29 mmol/L (21-32) Anion Gap 3 (6-14) 8 (6-14) Blood Urea Nitrogen 14 mg/dL (7-20) 7 mg/dL (7-20) Creatinine 0.8 mg/dL (0.6-1.0) 0.6 mg/dL (0.6-1.0) Estimated GFR (Cockcroft-Gault) 85.3 118.9 Glucose Level 95 mg/dL (70-99) 82 mg/dL (70-99) Calcium Level 9.0 mg/dL (8.5-10.1) 8.7 mg/dL (8.5-10.1) Assessment and Plan Assessmemt and Plan Problems Medical Problems: (1) Headache Status: Acute Problems: Comment Review of Relevant I have reviewed the following items benjamin (where applicable) has been applied. Labs Laboratory Tests Test 11/07/16 13:15 11/07/16 13:55 11/08/16 06:35 Erythrocyte Sedimentation Rate 54 (0-25) Prothrombin Time 12.9 SEC (11.7-14.0) Prothromb Time International Ratio 1.0 (0.8-1.1) White Blood Count 9.0 x10^3/uL (4.0-11.0) 11.6 x10^3/uL (4.0-11.0) Red Blood Count 4.73 x10^6/uL (3.50-5.40) 4.74 x10^6/uL (3.50-5.40) Hemoglobin 12.7 g/dL (12.0-15.5) 12.7 g/dL (12.0-15.5) Hematocrit 37.5 % (36.0-47.0) 37.5 % (36.0-47.0) Mean Corpuscular Volume 79 fL (79-100) 79 fL (79-100) Mean Corpuscular Hemoglobin 27 pg (25-35) 27 pg (25-35) Mean Corpuscular Hemoglobin Concent 34 g/dL (31-37) 34 g/dL (31-37) Red Cell Distribution Width 18.7 % (11.5-14.5) 18.5 % (11.5-14.5) Platelet Count 209 x10^3/uL (140-400) 193 x10^3/uL (140-400) Neutrophils (%) (Auto) 63 % (31-73) 63 % (31-73) Lymphocytes (%) (Auto) 30 % (24-48) 30 % (24-48) Monocytes (%) (Auto) 5 % (0-9) 6 % (0-9) Eosinophils (%) (Auto) 1 % (0-3) 0 % (0-3) Basophils (%) (Auto) 1 % (0-3) 1 % (0-3) Neutrophils # (Auto) 5.7 x10^3uL (1.8-7.7) 7.3 x10^3uL (1.8-7.7) Lymphocytes # (Auto) 2.7 x10^3/uL (1.0-4.8) 3.4 x10^3/uL (1.0-4.8) Monocytes # (Auto) 0.5 x10^3/uL (0.0-1.1) 0.7 x10^3/uL (0.0-1.1) Eosinophils # (Auto) 0.0 x10^3/uL (0.0-0.7) 0.0 x10^3/uL (0.0-0.7) Basophils # (Auto) 0.1 x10^3/uL (0.0-0.2) 0.1 x10^3/uL (0.0-0.2) Sodium Level 138 mmol/L (136-145) 142 mmol/L (136-145) Potassium Level 4.0 mmol/L (3.5-5.1) 3.8 mmol/L (3.5-5.1) Chloride Level 103 mmol/L (98-107) 105 mmol/L (98-107) Carbon Dioxide Level 32 mmol/L (21-32) 29 mmol/L (21-32) Anion Gap 3 (6-14) 8 (6-14) Blood Urea Nitrogen 14 mg/dL (7-20) 7 mg/dL (7-20) Creatinine 0.8 mg/dL (0.6-1.0) 0.6 mg/dL (0.6-1.0) Estimated GFR (Cockcroft-Gault) 85.3 118.9 Glucose Level 95 mg/dL (70-99) 82 mg/dL (70-99) Calcium Level 9.0 mg/dL (8.5-10.1) 8.7 mg/dL (8.5-10.1) Laboratory Tests Test 11/07/16 13:55 11/08/16 06:35 White Blood Count 9.0 x10^3/uL (4.0-11.0) 11.6 x10^3/uL (4.0-11.0) Red Blood Count 4.73 x10^6/uL (3.50-5.40) 4.74 x10^6/uL (3.50-5.40) Hemoglobin 12.7 g/dL (12.0-15.5) 12.7 g/dL (12.0-15.5) Hematocrit 37.5 % (36.0-47.0) 37.5 % (36.0-47.0) Mean Corpuscular Volume 79 fL (79-100) 79 fL (79-100) Mean Corpuscular Hemoglobin 27 pg (25-35) 27 pg (25-35) Mean Corpuscular Hemoglobin Concent 34 g/dL (31-37) 34 g/dL (31-37) Red Cell Distribution Width 18.7 % (11.5-14.5) 18.5 % (11.5-14.5) Platelet Count 209 x10^3/uL (140-400) 193 x10^3/uL (140-400) Neutrophils (%) (Auto) 63 % (31-73) 63 % (31-73) Lymphocytes (%) (Auto) 30 % (24-48) 30 % (24-48) Monocytes (%) (Auto) 5 % (0-9) 6 % (0-9) Eosinophils (%) (Auto) 1 % (0-3) 0 % (0-3) Basophils (%) (Auto) 1 % (0-3) 1 % (0-3) Neutrophils # (Auto) 5.7 x10^3uL (1.8-7.7) 7.3 x10^3uL (1.8-7.7) Lymphocytes # (Auto) 2.7 x10^3/uL (1.0-4.8) 3.4 x10^3/uL (1.0-4.8) Monocytes # (Auto) 0.5 x10^3/uL (0.0-1.1) 0.7 x10^3/uL (0.0-1.1) Eosinophils # (Auto) 0.0 x10^3/uL (0.0-0.7) 0.0 x10^3/uL (0.0-0.7) Basophils # (Auto) 0.1 x10^3/uL (0.0-0.2) 0.1 x10^3/uL (0.0-0.2) Sodium Level 138 mmol/L (136-145) 142 mmol/L (136-145) Potassium Level 4.0 mmol/L (3.5-5.1) 3.8 mmol/L (3.5-5.1) Chloride Level 103 mmol/L (98-107) 105 mmol/L (98-107) Carbon Dioxide Level 32 mmol/L (21-32) 29 mmol/L (21-32) Anion Gap 3 (6-14) 8 (6-14) Blood Urea Nitrogen 14 mg/dL (7-20) 7 mg/dL (7-20) Creatinine 0.8 mg/dL (0.6-1.0) 0.6 mg/dL (0.6-1.0) Estimated GFR (Cockcroft-Gault) 85.3 118.9 Glucose Level 95 mg/dL (70-99) 82 mg/dL (70-99) Calcium Level 9.0 mg/dL (8.5-10.1) 8.7 mg/dL (8.5-10.1) Medications Current Medications Sodium Chloride 500 ml @ 500 mls/hr 1X ONCE IV Last administered on 11/07/16 14:25; Start 11/07/16 at 14:00; Stop 11/07/16 at 14:59; Status DC Hydromorphone HCl (Dilaudid) 0.5 mg PRN Q30MIN PRN IV SEVERE PAIN Last administered on 11/07/16 14:24; Start 11/07/16 at 13:45; Stop 11/07/16 at 16:07; Status DC Ondansetron HCl (Zofran) 4 mg 1X ONCE IV Last administered on 11/07/16 15:46; Start 11/07/16 at 15:45; Stop 11/07/16 at 15:46; Status DC Ondansetron HCl (Zofran) 4 mg PRN Q8HRS PRN IV NAUSEA/VOMITING; Start 11/07/16 at 16:00; Stop 11/08/16 at 15:59 Morphine Sulfate 2 mg PRN Q2HR PRN IV PAIN; Start 11/07/16 at 16:00; Stop at 15:59 Sodium Chloride 1,000 ml @ 125 mls/hr Q8H IV Last administered on 11/07/16 20: 59; Start 11/07/16 at 16:00; Stop 11/08/16 at 15:59 Diltiazem HCl (Cardizem 24hr Cd) 120 mg DAILY PO ; Start 11/08/16 at 09:00; Stop 11/08/16 at 09:30; Status DC Acetaminophen (Tylenol) 650 mg PRN Q6HRS PRN PO FEVER; Start 11/07/16 at 16:15 Ondansetron HCl (Zofran) 4 mg PRN Q6HRS PRN IV NAUSEA/VOMITING; Start 11/07/16 at 16:15 Morphine Sulfate 2 mg PRN Q2HR PRN IV PAIN; Start 11/07/16 at 16:15 Tramadol HCl (Ultram) 50 mg PRN Q6HRS PRN PO PAIN; Start 11/07/16 at 16:15 Hydralazine HCl (Apresoline) 10 mg PRN Q4HRS PRN IVP ELEVATED BP, SEE COMMENTS ; Start 11/07/16 at 16:15 Docusate Sodium (Colace) 100 mg PRN DAILY PRN PO CONSTIPATION; Start 11/07/16 at 16:15 Heparin Sodium (Porcine) (Heparin Sq) 5,000 unit Q8HRS SQ Last administered on 11/08/16 06:09; Start 11/07/16 at 22:00 Prednisone (Prednisone) 30 mg DAILY PO ; Start 11/07/16 at 17:30; Stop 11/07/16 at 17:47; Status DC Famotidine (Pepcid) 20 mg QHS PO ; Start 11/07/16 at 21:00; Stop 11/08/16 at 09:53 ; Status DC Amlodipine Besylate (Norvasc) 5 mg HS PO ; Start 11/08/16 at 21:00 Psyllium Hydrophilic Mucilloid (Metamucil Fiber Packet) 1 pkt DAILY PO ; Start 11/08/16 at 10:00 Active Scripts Active Reported Amlodipine Besylate 5 Mg Tablet 5 Mg PO HS Metamucil (Psyllium Husk) 0.52 Gm Capsule 0.52 Gm PO DAILY Vitals/I & O Vital Sign - Last 24 Hours 11/07/16 11/07/16 11/07/16 11/07/16 14:54 17:35 18:30 19:00 Temp 98.1 98.1 98.1 98.1 Pulse 86 75 75 Resp 18 18 B/P (MAP) 142/88 (106) 123/84 (97) 123/84 (97) Pulse Ox 97 92 92 O2 Delivery Room Air Room Air Room Air Room Air 11/07/16 11/07/16 11/08/16 11/08/16 20:00 23:00 03:00 07:00 Temp 97.9 98.3 97.5 97.9 98.3 97.5 Pulse 89 83 82 Resp 16 16 16 B/P (MAP) 150/88 (108) 131/69 (89) 145/73 (97) Pulse Ox 96 99 99 O2 Delivery Room Air Room Air Room Air Room Air 11/08/16 11/08/16 08:00 11:10 Temp 97.7 97.7 Pulse 86 Resp 16 B/P (MAP) 131/71 (91) Pulse Ox 98 O2 Delivery Room Air Room Air Intake and Output 11/08/16 11/08/16 11/09/16 15:00 23:00 07:00 Output Total 600 ml Balance -600 ml ELI BURNS MD Nov 08, 2016 13:37
--- NOTE | 2016-11-08 14:48 | PDOC ---
PROGRESS NOTES Assessment Assessment Worsening of headaches. Chronic pain in left orbital area. Temporal A arteritis? Chronic headaches. HTN Glaucoma. Left retinal detachment, partial? Anxiety. Elevated ESR, 53. RECOMMENDATIONS/PLAN: Pain control. Consulted Surgery for left temporal A biopsy. Trial treatment with steroid can be started after biopsy. Discontinue if biopsy is negative. HISTORY OF THE PRESENT ILLNESS: 71-y-old AA female patient with Hx of chronic pain in her left frontal and temporal head and pain behind left orbital area. She received extensive evaluation including brain MRI but no evidence of CVA or brain tumor.She was seen by ophthalmology and was said to have cataract and partial retinal detachment (?). She has increased pain in her left side of head and elevated ESR so temporal A arteritis needs to be ruled. Past Medical History Cardiovascular: HTN Past Surgical History left Breast post lumpectomy Family History Hypertension Social History Smoke: No ALCOHOL: none Drugs: None ALLERGY: Reviewed. REVIEW OF SYSTEMS: Constitutional: No malnutrition, weight loss, cachexia. Head: No traumatic brain or head injury. Skin: No edema, or rash. Ear: No infection. Eyes: No vision loss or color blindness. Nose: No bleeding or purulent discharges. Hearing: No hearing decrease. Neck: No injury. Cardiac: HTN. Pulmonary: No COPD. GI: No GI ulcer, GI bleeding. Urinary/genital: UTI. Endocrinologic: No cousin face, craniofacial dysmorphism, polydactyly, goiter. Skeletomuscular: No muscular atrophy, deformity. Neurological: see HP. Psychiatric: Denies drug use/abuse. Otherwise, not -bnyae review of systems. PHYSICAL EXAMINATION: General appearance is in subacute distress. HEENT: Normocephalic and nontraumatic. Eyes, nose, ears, and throat are unremarkable. Neck is supple. No lymphadenopathy. No bruits are heard over the carotid artery. No crepitus. Cardiovascular: S1, S2, regular rate and rhythm. Pulmonary: Clear to auscultation bilaterally. Abdomen: Bowel sounds are positive. Abdomen is soft, nontender, and nondistended. Extremities: No rash, lesions, or edema. No restriction of range of motion NEUROLOGICAL EXAMINATION: Alert Oriented to time, place and person. PERRL. EOMI. CN: no focal findings. Muscle tone: within normal. Muscle strength: 5- DTR: 2 Plantar reflex: Flexor response bilaterally Gait: not examined in bed. Sensory exam: no abnormal findings. No acute cerebellar signs elicited. F-T-N test accurate. Objective Objective Vital Signs Date Time Temp Pulse Resp B/P (MAP) Pulse Ox O2 Delivery O2 Flow Rate FiO2 11/08/16 11:10 97.7 86 16 131/71 (91) 98 Room Air 97.7 Intake and Output 11/09/16 06:59 Output Total 600 ml Balance -600 ml Output Urine Total 600 ml Vitals Signs Vitals VS - Last 72 Hours, by Label Date Time Temp Pulse Resp B/P (MAP) Pulse Ox O2 Delivery O2 Flow Rate FiO2 11/08/16 11:10 97.7 86 16 131/71 (91) 98 Room Air 97.7 11/08/16 08:00 Room Air 11/08/16 07:00 97.5 82 16 145/73 (97) 99 Room Air 97.5 11/08/16 03:00 98.3 83 16 131/69 (89) 99 Room Air 98.3 11/07/16 23:00 97.9 89 16 150/88 (108) 96 Room Air 97.9 11/07/16 20:00 Room Air 11/07/16 19:00 98.1 75 123/84 (97) 92 Room Air 98.1 11/07/16 18:30 98.1 75 18 123/84 (97) 92 Room Air 98.1 11/07/16 17:35 Room Air 11/07/16 14:54 86 18 142/88 (106) 97 Room Air 11/07/16 13:35 98.3 91 18 153/83 (106) 97 Room Air 98.3 Laboratory Laboratory Laboratory Tests Test 11/08/16 06:35 White Blood Count 11.6 x10^3/uL (4.0-11.0) Red Blood Count 4.74 x10^6/uL (3.50-5.40) Hemoglobin 12.7 g/dL (12.0-15.5) Hematocrit 37.5 % (36.0-47.0) Mean Corpuscular Volume 79 fL (79-100) Mean Corpuscular Hemoglobin 27 pg (25-35) Mean Corpuscular Hemoglobin Concent 34 g/dL (31-37) Red Cell Distribution Width 18.5 % (11.5-14.5) Platelet Count 193 x10^3/uL (140-400) Neutrophils (%) (Auto) 63 % (31-73) Lymphocytes (%) (Auto) 30 % (24-48) Monocytes (%) (Auto) 6 % (0-9) Eosinophils (%) (Auto) 0 % (0-3) Basophils (%) (Auto) 1 % (0-3) Neutrophils # (Auto) 7.3 x10^3uL (1.8-7.7) Lymphocytes # (Auto) 3.4 x10^3/uL (1.0-4.8) Monocytes # (Auto) 0.7 x10^3/uL (0.0-1.1) Eosinophils # (Auto) 0.0 x10^3/uL (0.0-0.7) Basophils # (Auto) 0.1 x10^3/uL (0.0-0.2) Sodium Level 142 mmol/L (136-145) Potassium Level 3.8 mmol/L (3.5-5.1) Chloride Level 105 mmol/L (98-107) Carbon Dioxide Level 29 mmol/L (21-32) Anion Gap 8 (6-14) Blood Urea Nitrogen 7 mg/dL (7-20) Creatinine 0.6 mg/dL (0.6-1.0) Estimated GFR (Cockcroft-Gault) 118.9 Glucose Level 82 mg/dL (70-99) Calcium Level 8.7 mg/dL (8.5-10.1) Medication Medications Current Medications Acetaminophen (Tylenol) 650 mg PRN Q6HRS PRN PO FEVER; Start 11/07/16 at 16:15 Amlodipine Besylate (Norvasc) 5 mg HS PO ; Start 11/08/16 at 21:00 Diltiazem HCl (Cardizem 24hr Cd) 120 mg DAILY PO ; Start 11/08/16 at 09:00; Stop 11/08/16 at 09:30; Status DC Docusate Sodium (Colace) 100 mg PRN DAILY PRN PO CONSTIPATION; Start 11/07/16 at 16:15 Famotidine (Pepcid) 20 mg QHS PO ; Start 11/07/16 at 21:00; Stop 11/08/16 at 09:53 ; Status DC Heparin Sodium (Porcine) (Heparin Sq) 5,000 unit Q8HRS SQ Last administered on 11/08/16 13:46; Start 11/07/16 at 22:00 Hydralazine HCl (Apresoline) 10 mg PRN Q4HRS PRN IVP ELEVATED BP, SEE COMMENTS ; Start 11/07/16 at 16:15 Morphine Sulfate 2 mg PRN Q2HR PRN IV PAIN; Start 11/07/16 at 16:00; Stop at 15:59 Morphine Sulfate 2 mg PRN Q2HR PRN IV PAIN; Start 11/07/16 at 16:15 Ondansetron HCl (Zofran) 4 mg 1X ONCE IV Last administered on 11/07/16 15:46; Start 11/07/16 at 15:45; Stop 11/07/16 at 15:46; Status DC Ondansetron HCl (Zofran) 4 mg PRN Q6HRS PRN IV NAUSEA/VOMITING; Start 11/07/16 at 16:15 Ondansetron HCl (Zofran) 4 mg PRN Q8HRS PRN IV NAUSEA/VOMITING; Start 11/07/16 at 16:00; Stop 11/08/16 at 15:59 Prednisone (Prednisone) 30 mg DAILY PO ; Start 11/07/16 at 17:30; Stop 11/07/16 at 17:47; Status DC Psyllium Hydrophilic Mucilloid (Metamucil Fiber Packet) 1 pkt DAILY PO ; Start 11/08/16 at 10:00 Sodium Chloride 1,000 ml @ 125 mls/hr Q8H IV Last administered on 11/08/16 14: 00; Start 11/07/16 at 16:00; Stop 11/08/16 at 15:59 Tramadol HCl (Ultram) 50 mg PRN Q6HRS PRN PO PAIN; Start 11/07/16 at 16:15 Comment Review of Relevant I have reviewed the following items benjamin (where applicable) has been applied. TETO HADLEY MD Nov 08, 2016 14:47
[2016-11-08 15:32] VITALS: BP 113/58
[2016-11-08 19:00] VITALS: BP 132/81
[2016-11-08] MEDS ORDERED: amLODIPine BESYLATE 5 MG TABLET PO SCH (21:00)
[2016-11-08 23:00] VITALS: BP 167/98
[2016-11-09] VITALS (12 sets, daily range): BP systolic 120–152; BP diastolic 65–86
[2016-11-09 06:05] LABS: BASO # 0.1 x10^3/uL (0.0-0.2); BASO % 1 % (0-3); EOS % 1 % (0-3); HEMATOCRIT 33.6 % (36.0-47.0); HEMOGLOBIN 11.9 g/dL (12.0-15.5); LYMPH # 3.1 x10^3/uL (1.0-4.8); LYMPH % 46 % (24-48); MEAN CORPUSCULAR HEMOGLOBIN 27 pg (25-35); MEAN CORPUSCULAR HGB CONC 35 g/dL (31-37); MEAN CORPUSCULAR VOLUME 77 fL (79-100); MONO % 6 % (0-9); NEUT % 46 % (31-73); PLATELET COUNT 196 x10^3/uL (140-400); RED BLOOD COUNT 4.34 x10^6/uL (3.50-5.40); RED CELL DISTRIBUTION WIDTH 18.5 % (11.5-14.5); WHITE BLOOD COUNT 6.8 x10^3/uL (4.0-11.0)
[2016-11-09] MEDS: HEPARIN PF for SUB-Q USE 5,000 UNIT/0.5 ML VIAL. SQ SCH ×3 (06:23→21:07)
[2016-11-09 06:26] LABS: CALCIUM 8.4 mg/dL (8.5-10.1); CREATININE 0.6 mg/dL (0.6-1.0); GFR 118.9; POTASSIUM 3.7 mmol/L (3.5-5.1)
[2016-11-09] MEDS: PSYLLIUM HUSK (SUGAR FREE) 1 PKT PACKET PO SCH (07:39)
[2016-11-09] MEDS ORDERED: IV RINGERS,LACTATED 1000ML 1,000 ML IV SCH (08:04)
[2016-11-09] MEDS ORDERED: fentaNYL PF VIAL 100 MCG/2 ML VIAL IV PRN ×2 (08:15)
[2016-11-09] MEDS ORDERED: ONDANSETRON PF 4 MG/2 ML VIAL. IV PRN (08:15)
[2016-11-09] MEDS ORDERED: PROCHLORPERAZINE 10 MG/2 ML VIAL. IV PRN (08:15)
[2016-11-09] MEDS ORDERED: LIDOCAINE 1% 1 ML SYRINGE. ID PRN (08:15)
[2016-11-09] MEDS ORDERED: HYDROmorphone 2 MG/ML VIAL IV PRN (08:15)
[2016-11-09] MEDS ORDERED: MORPHINE SULFATE 2 MG/ML DISP.SYRIN. IV PRN (08:15)
[2016-11-09] MEDS ORDERED: LIDOCAINE 2% PF Vial for OR 5 ML VIAL. ONE (09:12)
[2016-11-09] MEDS ORDERED: DEXAMETHASONE SOD PHOS 20 MG/5 ML VIAL. ONE (09:12)
[2016-11-09] MEDS ORDERED: PROPOFOL 20 ML IV ONE (09:12)
[2016-11-09] MEDS ORDERED: ONDANSETRON PF 4 MG/2 ML VIAL. ONE (09:12)
[2016-11-09] MEDS ORDERED: BUPIVAC MPF-EPI 0.5%-1:200000 10 ML VIAL. ONE (10:01)
[2016-11-09] MEDS ORDERED: ePHEDrine PF IN SALINE 50 MG/5 ML DISP.SYRIN IV ONE (10:54)
[2016-11-09] MEDS ORDERED: HYDROcodone/APAP 5/325MG 1 TAB TABLET PO PRN (11:45)
--- NOTE | 2016-11-09 11:48 | PDOC4 ---
Operative Note Operative Note Operative Note: Preoperative Diagnosis: Left temporal headache Postoperative Diagnosis: Same Procedure: Left temporal artery biopsy Surgeon: Jori Anesthesia: Gen. EBL: 10 mL Specimen: Temporal artery to pathology Drains: None Complications: None Indication: The patient is a 71-year-old female who was admitted due to a headache. She underwent evaluation by neurology and a request is made for a left temporal artery biopsy. The details and risks of surgery were discussed with the patient. The risks include bleeding, infection, injury to facial nerve branch, pain, potential need for additional surgery or procedure. She understands and would like to proceed. Description: The patient was taken to the operating room and placed supine on the operating table. Gen. anesthesia was performed. The left temporal region was then shaved and prepped with Betadine and draped in a standard surgical manner. With a Doppler the course of the left superficial temporal artery was identified and marked on the skin. An incision was then made on the skin with a 15 blade scalpel. Dissection was carried down to the subcutaneous tissue. The temporal artery was readily identified and mobilized for the length of the incision. The mobilized portion was at least 3 cm in length. The temporal artery was ligated proximally and distally using 3-0 Vicryl. The mid segment of the artery was then excised and sent to pathology in formalin. Hemostasis was good. The skin was then approximated with a 4-0 Monocryl running suture. The incision was infiltrated with half percent Marcaine with epinephrine. A sterile dressing was then applied. The patient tolerated the procedure well and was sent to the recovery room in stable condition. At the end of the case all counts were correct. LILIBETH SANFORD MD Nov 09, 2016 11:48
[2016-11-09] MEDS ORDERED: SEVOFLURANE 31 TO 60 MINUTES. IH ONE (12:27)
--- NOTE | 2016-11-09 15:26 | PDOC ---
PROGRESS NOTES Chief Complaint Chief Complaint intractable headache, 2/2 migraine flare? HTN glaucoma diverticulosis h/o Left BCa post sx chronic headache GERD leukocytosis, reactive plan; fu with dr. Giron, ESR pending, would like to rule out temp Arteritis, sx fu, left temporal A bx 9/3 am cont home meds pain control dvt ppx add prednisone post sx History of Present Illness History of Present Illness ROS: no fever, chills, sob or chest pain headache better at 6/10 afraid to use narcotics bx today Vitals Vitals Vital Signs Date Time Temp Pulse Resp B/P (MAP) Pulse Ox O2 Delivery O2 Flow Rate FiO2 11/09/16 14:25 81 18 152/79 (103) 93 Room Air 11/09/16 13:25 97.5 97.5 11/09/16 11:48 10 Physical Exam General: Alert, Oriented X3, Cooperative Heart: Regular rate, Normal S1, Normal S2 Lungs: Clear Abdomen: Normal bowel sounds, Soft Extremities: No clubbing, No cyanosis Skin: No rashes, No breakdown Labs LABS Laboratory Tests Test 11/09/16 04:30 White Blood Count 6.8 x10^3/uL (4.0-11.0) Red Blood Count 4.34 x10^6/uL (3.50-5.40) Hemoglobin 11.9 g/dL (12.0-15.5) Hematocrit 33.6 % (36.0-47.0) Mean Corpuscular Volume 77 fL (79-100) Mean Corpuscular Hemoglobin 27 pg (25-35) Mean Corpuscular Hemoglobin Concent 35 g/dL (31-37) Red Cell Distribution Width 18.5 % (11.5-14.5) Platelet Count 196 x10^3/uL (140-400) Neutrophils (%) (Auto) 46 % (31-73) Lymphocytes (%) (Auto) 46 % (24-48) Monocytes (%) (Auto) 6 % (0-9) Eosinophils (%) (Auto) 1 % (0-3) Basophils (%) (Auto) 1 % (0-3) Neutrophils # (Auto) 3.2 x10^3uL (1.8-7.7) Lymphocytes # (Auto) 3.1 x10^3/uL (1.0-4.8) Monocytes # (Auto) 0.4 x10^3/uL (0.0-1.1) Eosinophils # (Auto) 0.0 x10^3/uL (0.0-0.7) Basophils # (Auto) 0.1 x10^3/uL (0.0-0.2) Sodium Level 143 mmol/L (136-145) Potassium Level 3.7 mmol/L (3.5-5.1) Chloride Level 108 mmol/L (98-107) Carbon Dioxide Level 28 mmol/L (21-32) Anion Gap 7 (6-14) Blood Urea Nitrogen 11 mg/dL (7-20) Creatinine 0.6 mg/dL (0.6-1.0) Estimated GFR (Cockcroft-Gault) 118.9 Glucose Level 82 mg/dL (70-99) Calcium Level 8.4 mg/dL (8.5-10.1) Assessment and Plan Assessmemt and Plan Problems Medical Problems: (1) Headache Status: Acute Problems: Comment Review of Relevant I have reviewed the following items benjamin (where applicable) has been applied. Labs Laboratory Tests Test 11/08/16 06:35 11/09/16 04:30 White Blood Count 11.6 x10^3/uL (4.0-11.0) 6.8 x10^3/uL (4.0-11.0) Red Blood Count 4.74 x10^6/uL (3.50-5.40) 4.34 x10^6/uL (3.50-5.40) Hemoglobin 12.7 g/dL (12.0-15.5) 11.9 g/dL (12.0-15.5) Hematocrit 37.5 % (36.0-47.0) 33.6 % (36.0-47.0) Mean Corpuscular Volume 79 fL (79-100) 77 fL (79-100) Mean Corpuscular Hemoglobin 27 pg (25-35) 27 pg (25-35) Mean Corpuscular Hemoglobin Concent 34 g/dL (31-37) 35 g/dL (31-37) Red Cell Distribution Width 18.5 % (11.5-14.5) 18.5 % (11.5-14.5) Platelet Count 193 x10^3/uL (140-400) 196 x10^3/uL (140-400) Neutrophils (%) (Auto) 63 % (31-73) 46 % (31-73) Lymphocytes (%) (Auto) 30 % (24-48) 46 % (24-48) Monocytes (%) (Auto) 6 % (0-9) 6 % (0-9) Eosinophils (%) (Auto) 0 % (0-3) 1 % (0-3) Basophils (%) (Auto) 1 % (0-3) 1 % (0-3) Neutrophils # (Auto) 7.3 x10^3uL (1.8-7.7) 3.2 x10^3uL (1.8-7.7) Lymphocytes # (Auto) 3.4 x10^3/uL (1.0-4.8) 3.1 x10^3/uL (1.0-4.8) Monocytes # (Auto) 0.7 x10^3/uL (0.0-1.1) 0.4 x10^3/uL (0.0-1.1) Eosinophils # (Auto) 0.0 x10^3/uL (0.0-0.7) 0.0 x10^3/uL (0.0-0.7) Basophils # (Auto) 0.1 x10^3/uL (0.0-0.2) 0.1 x10^3/uL (0.0-0.2) Sodium Level 142 mmol/L (136-145) 143 mmol/L (136-145) Potassium Level 3.8 mmol/L (3.5-5.1) 3.7 mmol/L (3.5-5.1) Chloride Level 105 mmol/L (98-107) 108 mmol/L (98-107) Carbon Dioxide Level 29 mmol/L (21-32) 28 mmol/L (21-32) Anion Gap 8 (6-14) 7 (6-14) Blood Urea Nitrogen 7 mg/dL (7-20) 11 mg/dL (7-20) Creatinine 0.6 mg/dL (0.6-1.0) 0.6 mg/dL (0.6-1.0) Estimated GFR (Cockcroft-Gault) 118.9 118.9 Glucose Level 82 mg/dL (70-99) 82 mg/dL (70-99) Calcium Level 8.7 mg/dL (8.5-10.1) 8.4 mg/dL (8.5-10.1) Laboratory Tests Test 11/09/16 04:30 White Blood Count 6.8 x10^3/uL (4.0-11.0) Red Blood Count 4.34 x10^6/uL (3.50-5.40) Hemoglobin 11.9 g/dL (12.0-15.5) Hematocrit 33.6 % (36.0-47.0) Mean Corpuscular Volume 77 fL (79-100) Mean Corpuscular Hemoglobin 27 pg (25-35) Mean Corpuscular Hemoglobin Concent 35 g/dL (31-37) Red Cell Distribution Width 18.5 % (11.5-14.5) Platelet Count 196 x10^3/uL (140-400) Neutrophils (%) (Auto) 46 % (31-73) Lymphocytes (%) (Auto) 46 % (24-48) Monocytes (%) (Auto) 6 % (0-9) Eosinophils (%) (Auto) 1 % (0-3) Basophils (%) (Auto) 1 % (0-3) Neutrophils # (Auto) 3.2 x10^3uL (1.8-7.7) Lymphocytes # (Auto) 3.1 x10^3/uL (1.0-4.8) Monocytes # (Auto) 0.4 x10^3/uL (0.0-1.1) Eosinophils # (Auto) 0.0 x10^3/uL (0.0-0.7) Basophils # (Auto) 0.1 x10^3/uL (0.0-0.2) Sodium Level 143 mmol/L (136-145) Potassium Level 3.7 mmol/L (3.5-5.1) Chloride Level 108 mmol/L (98-107) Carbon Dioxide Level 28 mmol/L (21-32) Anion Gap 7 (6-14) Blood Urea Nitrogen 11 mg/dL (7-20) Creatinine 0.6 mg/dL (0.6-1.0) Estimated GFR (Cockcroft-Gault) 118.9 Glucose Level 82 mg/dL (70-99) Calcium Level 8.4 mg/dL (8.5-10.1) Medications Current Medications Sodium Chloride 500 ml @ 500 mls/hr 1X ONCE IV Last administered on 11/07/16 14:25; Start 11/07/16 at 14:00; Stop 11/07/16 at 14:59; Status DC Hydromorphone HCl (Dilaudid) 0.5 mg PRN Q30MIN PRN IV SEVERE PAIN Last administered on 11/07/16 14:24; Start 11/07/16 at 13:45; Stop 11/07/16 at 16:07; Status DC Ondansetron HCl (Zofran) 4 mg 1X ONCE IV Last administered on 11/07/16 15:46; Start 11/07/16 at 15:45; Stop 11/07/16 at 15:46; Status DC Ondansetron HCl (Zofran) 4 mg PRN Q8HRS PRN IV NAUSEA/VOMITING; Start 11/07/16 at 16:00; Stop 11/08/16 at 15:59; Status DC Morphine Sulfate 2 mg PRN Q2HR PRN IV PAIN; Start 11/07/16 at 16:00; Stop at 15:59; Status DC Sodium Chloride 1,000 ml @ 125 mls/hr Q8H IV Last administered on 11/08/16 14: 00; Start 11/07/16 at 16:00; Stop 11/08/16 at 15:59; Status DC Diltiazem HCl (Cardizem 24hr Cd) 120 mg DAILY PO ; Start 11/08/16 at 09:00; Stop 11/08/16 at 09:30; Status DC Acetaminophen (Tylenol) 650 mg PRN Q6HRS PRN PO FEVER; Start 11/07/16 at 16:15 Ondansetron HCl (Zofran) 4 mg PRN Q6HRS PRN IV NAUSEA/VOMITING; Start 11/07/16 at 16:15 Morphine Sulfate 2 mg PRN Q2HR PRN IV PAIN; Start 11/07/16 at 16:15 Tramadol HCl (Ultram) 50 mg PRN Q6HRS PRN PO PAIN; Start 11/07/16 at 16:15 Hydralazine HCl (Apresoline) 10 mg PRN Q4HRS PRN IVP ELEVATED BP, SEE COMMENTS ; Start 11/07/16 at 16:15 Docusate Sodium (Colace) 100 mg PRN DAILY PRN PO CONSTIPATION; Start 11/07/16 at 16:15 Heparin Sodium (Porcine) (Heparin Sq) 5,000 unit Q8HRS SQ Last administered on 11/09/16 06:23; Start 11/07/16 at 22:00 Prednisone (Prednisone) 30 mg DAILY PO ; Start 11/07/16 at 17:30; Stop 11/07/16 at 17:47; Status DC Famotidine (Pepcid) 20 mg QHS PO ; Start 11/07/16 at 21:00; Stop 11/08/16 at 09:53 ; Status DC Amlodipine Besylate (Norvasc) 5 mg HS PO Last administered on 11/08/16 21:29; Start 11/08/16 at 21:00 Psyllium Hydrophilic Mucilloid (Metamucil Fiber Packet) 1 pkt DAILY PO ; Start 11/08/16 at 10:00 Ondansetron HCl (Zofran) 4 mg PRN Q6HRS PRN IV NAUSEA/VOMITING; Start 11/09/16 at 08:15; Stop 11/10/16 at 08:14 Fentanyl Citrate (Fentanyl 2ml Vial) 25 mcg PRN Q5MIN PRN IV MILD PAIN; Start 11/09/16 at 08:15; Stop 11/10/16 at 08:14 Fentanyl Citrate (Fentanyl 2ml Vial) 50 mcg PRN Q5MIN PRN IV MODERATE PAIN; Start 11/09/16 at 08:15; Stop 11/10/16 at 08:14 Morphine Sulfate 1 mg PRN Q10MIN PRN IV SEVERE PAIN; Start 11/09/16 at 08:15; Stop 11/10/16 at 08:14 Ringer's Solution 1,000 ml @ 0 mls/hr Q0M IV Last administered on 11/09/16 09: 20; Start 11/09/16 at 08:04; Stop 11/09/16 at 20:03 Lidocaine HCl 2 ml PRN 1X PRN ID PRIOR TO IV START; Start 11/09/16 at 08:15; Stop 11/10/16 at 08:14 Hydromorphone HCl (Dilaudid) 0.5 mg PRN Q10MIN PRN IV SEV PAIN, Second choice; Start 11/09/16 at 08:15; Stop 11/10/16 at 08:14 Prochlorperazine Edisylate (Compazine) 5 mg PACU PRN PRN IV NAUSEA, MRX1 Last administered on 11/09/16t 11:50; Start 11/09/16 at 08:15; Stop 11/10/16 at 08:14 Dexamethasone Sodium Phosphate (Decadron) 20 mg STK-MED ONCE .ROUTE ; Start 11/09 at 09:12; Stop 11/09/16 at 09:13; Status DC Ondansetron HCl (Zofran) 4 mg STK-MED ONCE .ROUTE ; Start 11/09/16 at 09:12; Stop 11/09/16 at 09:13; Status DC Propofol 20 ml @ As Directed STK-MED ONCE IV ; Start 11/09/16 at 09:12; Stop 11/09 at 09:13; Status DC Lidocaine HCl (Lidocaine Pf 2% Vial) 5 ml STK-MED ONCE .ROUTE ; Start 11/09/16 at 09:12; Stop 11/09/16 at 09:13; Status DC Bupivacaine HCl/ Epinephrine Bitart (Sensorcain-Mpf Epi 0.5%-[id number]) 10 ml STK -MED ONCE .ROUTE Last administered on 11/09/16t 10:58; Start 11/09/16 at 10:01; Stop 11/09/16 at 10:02; Status DC Ephedrine Sulfate 50 mg STK-MED ONCE IV ; Start 11/09/16 at 10:54; Stop 11/09/16 at 10:55; Status DC Acetaminophen/ Hydrocodone Bitart (Lortab 5/325) 1 tab PRN Q4HRS PRN PO PAIN; Start 11/09/16 at 11:45 Sevoflurane (Ultane) 30 ml STK-MED ONCE IH ; Start 11/09/16 at 12:27; Stop at 12:28; Status DC Active Scripts Active Reported Amlodipine Besylate 5 Mg Tablet 5 Mg PO HS Metamucil (Psyllium Husk) 0.52 Gm Capsule 0.52 Gm PO DAILY Vitals/I & O Vital Sign - Last 24 Hours 11/08/16 11/08/16 11/08/16 11/08/16 15:32 19:00 20:00 21:29 Temp 97.8 98.2 97.8 98.2 Pulse 86 78 78 Resp 16 16 B/P (MAP) 113/58 (76) 132/81 (98) 132/81 Pulse Ox 98 99 O2 Delivery Room Air Room Air Room Air 11/08/16 11/09/16 11/09/16 11/09/16 23:00 03:00 07:12 08:00 Temp 97.9 98.1 98.8 97.9 98.1 98.8 Pulse 85 74 84 Resp 16 16 16 B/P (MAP) 167/98 (121) 127/69 (88) 137/86 (103) Pulse Ox 96 95 97 O2 Delivery Room Air Room Air Room Air Room Air 11/09/16 11/09/16 11/09/16 11/09/16 09:16 11:33 11:33 11:48 Temp 98.1 97.7 98.1 97.7 Pulse 83 89 76 Resp 16 14 14 B/P (MAP) 140/72 147/76 151/79 Pulse Ox 97 100 100 O2 Delivery Room Air Mask Simple Mask Simple Mask O2 Flow Rate 10 10 10 11/09/16 11/09/16 11/09/16 11/09/16 11:48 12:03 12:18 12:28 Temp 99.3 99.3 99.3 99.3 Pulse 76 72 Resp 16 16 B/P (MAP) 148/78 145/78 Pulse Ox 100 95 O2 Delivery Room Air Room Air Room Air 11/09/16 11/09/16 11/09/16 11/09/16 12:40 12:55 13:10 13:25 Temp 97.4 97.5 97.6 97.5 97.4 97.5 97.6 97.5 Pulse 73 78 74 75 Resp 16 16 16 16 B/P (MAP) 147/80 (102) 141/73 (95) 141/73 (95) 142/75 (97) Pulse Ox 97 97 98 97 O2 Delivery Room Air Room Air Room Air Room Air 11/09/16 11/09/16 13:55 14:25 Pulse 76 81 Resp 16 18 B/P (MAP) 148/81 (103) 152/79 (103) Pulse Ox 96 93 O2 Delivery Room Air Room Air Intake and Output 11/09/16 11/09/16 11/10/16 15:00 23:00 07:00 Intake Total 700 ml Output Total 5 ml Balance 695 ml ELI BURNS MD Nov 09, 2016 15:26
--- NOTE | 2016-11-09 15:31 | PDOC ---
PROGRESS NOTES Assessment Assessment Worsening of headaches. Chronic pain in left orbital area. Temporal A arteritis? Chronic headaches. HTN Glaucoma. Left retinal detachment, partial? Anxiety. Elevated ESR, 53. RECOMMENDATIONS/PLAN: Pain control. Consulted Surgery for left temporal A biopsy which performed on 11/09/16. Trial treatment with steroid can be started after biopsy. Discontinue if biopsy is negative. 30 mg daily started on 11/09/16. Check BP q6h and glucose bid. BP control, no high than 140/90 mmHg. HISTORY OF THE PRESENT ILLNESS: 71-y-old AA female patient with Hx of chronic pain in her left frontal and temporal head and pain behind left orbital area. She received extensive evaluation including brain MRI but no evidence of CVA or brain tumor.She was seen by ophthalmology and was said to have cataract and partial retinal detachment (?). She has increased pain in her left side of head and elevated ESR so temporal A arteritis needs to be ruled. She had left side temporal A biopsy on 11/09/16. She is doing fine after biopsy. Past Medical History Cardiovascular: HTN Past Surgical History left Breast post lumpectomy Family History Hypertension Social History Smoke: No ALCOHOL: none Drugs: None ALLERGY: Reviewed. REVIEW OF SYSTEMS: Constitutional: No malnutrition, weight loss, cachexia. Head: No traumatic brain or head injury. Skin: No edema, or rash. Ear: No infection. Eyes: No vision loss or color blindness. Nose: No bleeding or purulent discharges. Hearing: No hearing decrease. Neck: No injury. Cardiac: HTN. Pulmonary: No COPD. GI: No GI ulcer, GI bleeding. Urinary/genital: UTI. Endocrinologic: No cousin face, craniofacial dysmorphism, polydactyly, goiter. Skeletomuscular: No muscular atrophy, deformity. Neurological: see HP. Psychiatric: Denies drug use/abuse. Otherwise, not -vlshi review of systems. PHYSICAL EXAMINATION: General appearance is in subacute distress. HEENT: Normocephalic and nontraumatic. Eyes, nose, ears, and throat are unremarkable. Neck is supple. No lymphadenopathy. No bruits are heard over the carotid artery. No crepitus. Cardiovascular: S1, S2, regular rate and rhythm. Pulmonary: Clear to auscultation bilaterally. Abdomen: Bowel sounds are positive. Abdomen is soft, nontender, and nondistended. Extremities: No rash, lesions, or edema. No restriction of range of motion NEUROLOGICAL EXAMINATION: Alert Oriented to time, place and person. PERRL. EOMI. CN: no focal findings. Muscle tone: within normal. Muscle strength: 5- DTR: 2 Plantar reflex: Flexor response bilaterally Gait: not examined in bed. Sensory exam: no abnormal findings. No acute cerebellar signs elicited. F-T-N test accurate. Objective Objective Vital Signs Date Time Temp Pulse Resp B/P (MAP) Pulse Ox O2 Delivery O2 Flow Rate FiO2 11/09/16 14:25 81 18 152/79 (103) 93 Room Air 11/09/16 13:25 97.5 97.5 11/09/16 11:48 10 Intake and Output 11/10/16 07:00 Intake Total 700 ml Output Total 5 ml Balance 695 ml IV Total 700 ml Estimated Blood Loss 5 ml Vitals Signs Vitals VS - Last 72 Hours, by Label Date Time Temp Pulse Resp B/P (MAP) Pulse Ox O2 Delivery O2 Flow Rate FiO2 11/09/16 14:25 81 18 152/79 (103) 93 Room Air 11/09/16 13:55 76 16 148/81 (103) 96 Room Air 11/09/16 13:25 97.5 75 16 142/75 (97) 97 Room Air 97.5 11/09/16 13:10 97.6 74 16 141/73 (95) 98 Room Air 97.6 11/09/16 12:55 97.5 78 16 141/73 (95) 97 Room Air 97.5 11/09/16 12:40 97.4 73 16 147/80 (102) 97 Room Air 97.4 11/09/16 12:28 99.3 99.3 11/09/16 12:18 99.3 72 16 145/78 95 Room Air 99.3 11/09/16 12:03 76 16 148/78 100 Room Air 11/09/16 11:48 Room Air 11/09/16 11:48 76 14 151/79 100 Simple Mask 10 11/09/16 11:33 97.7 89 14 147/76 100 Simple Mask 10 97.7 11/09/16 11:33 Mask 10 11/09/16 09:16 98.1 83 16 140/72 97 Room Air 98.1 11/09/16 08:00 Room Air 11/09/16 07:12 98.8 84 16 137/86 (103) 97 Room Air 98.8 11/09/16 03:00 98.1 74 16 127/69 (88) 95 Room Air 98.1 11/08/16 23:00 97.9 85 16 167/98 (121) 96 Room Air 97.9 11/08/16 21:29 78 132/81 11/08/16 20:00 Room Air 11/08/16 19:00 98.2 78 16 132/81 (98) 99 Room Air 98.2 11/08/16 15:32 97.8 86 16 113/58 (76) 98 Room Air 97.8 11/08/16 11:10 97.7 86 16 131/71 (91) 98 Room Air 97.7 11/08/16 08:00 Room Air 11/08/16 07:00 97.5 82 16 145/73 (97) 99 Room Air 97.5 Laboratory Laboratory Laboratory Tests Test 11/09/16 04:30 White Blood Count 6.8 x10^3/uL (4.0-11.0) Red Blood Count 4.34 x10^6/uL (3.50-5.40) Hemoglobin 11.9 g/dL (12.0-15.5) Hematocrit 33.6 % (36.0-47.0) Mean Corpuscular Volume 77 fL (79-100) Mean Corpuscular Hemoglobin 27 pg (25-35) Mean Corpuscular Hemoglobin Concent 35 g/dL (31-37) Red Cell Distribution Width 18.5 % (11.5-14.5) Platelet Count 196 x10^3/uL (140-400) Neutrophils (%) (Auto) 46 % (31-73) Lymphocytes (%) (Auto) 46 % (24-48) Monocytes (%) (Auto) 6 % (0-9) Eosinophils (%) (Auto) 1 % (0-3) Basophils (%) (Auto) 1 % (0-3) Neutrophils # (Auto) 3.2 x10^3uL (1.8-7.7) Lymphocytes # (Auto) 3.1 x10^3/uL (1.0-4.8) Monocytes # (Auto) 0.4 x10^3/uL (0.0-1.1) Eosinophils # (Auto) 0.0 x10^3/uL (0.0-0.7) Basophils # (Auto) 0.1 x10^3/uL (0.0-0.2) Sodium Level 143 mmol/L (136-145) Potassium Level 3.7 mmol/L (3.5-5.1) Chloride Level 108 mmol/L (98-107) Carbon Dioxide Level 28 mmol/L (21-32) Anion Gap 7 (6-14) Blood Urea Nitrogen 11 mg/dL (7-20) Creatinine 0.6 mg/dL (0.6-1.0) Estimated GFR (Cockcroft-Gault) 118.9 Glucose Level 82 mg/dL (70-99) Calcium Level 8.4 mg/dL (8.5-10.1) Medication Medications Current Medications Acetaminophen/ Hydrocodone Bitart (Lortab 5/325) 1 tab PRN Q4HRS PRN PO PAIN; Start 11/09/16 at 11:45 Amlodipine Besylate (Norvasc) 5 mg HS PO Last administered on 11/08/16 21:29; Start 11/08/16 at 21:00 Bupivacaine HCl/ Epinephrine Bitart (Sensorcain-Mpf Epi 0.5%-1:[id number]) 10 ml STK -MED ONCE .ROUTE Last administered on 11/09/16 10:58; Start 11/09/16 at 10:01; Stop 11/09/16 at 10:02; Status DC Dexamethasone Sodium Phosphate (Decadron) 20 mg STK-MED ONCE .ROUTE ; Start 11/09 at 09:12; Stop 11/09/16 at 09:13; Status DC Ephedrine Sulfate 50 mg STK-MED ONCE IV ; Start 11/09/16 at 10:54; Stop 11/09/16 at 10:55; Status DC Fentanyl Citrate (Fentanyl 2ml Vial) 25 mcg PRN Q5MIN PRN IV MILD PAIN; Start 11/09/16 at 08:15; Stop 11/09/16 at 15:24; Status DC Fentanyl Citrate (Fentanyl 2ml Vial) 50 mcg PRN Q5MIN PRN IV MODERATE PAIN; Start 11/09/16 at 08:15; Stop 11/09/16 at 15:24; Status DC Hydromorphone HCl (Dilaudid) 0.5 mg PRN Q10MIN PRN IV SEV PAIN, Second choice; Start 11/09/16 at 08:15; Stop 11/09/16 at 15:24; Status DC Lidocaine HCl 2 ml PRN 1X PRN ID PRIOR TO IV START; Start 11/09/16 at 08:15; Stop 11/09/16 at 15:24; Status DC Lidocaine HCl (Lidocaine Pf 2% Vial) 5 ml STK-MED ONCE .ROUTE ; Start 11/09/16 at 09:12; Stop 11/09/16 at 09:13; Status DC Morphine Sulfate 1 mg PRN Q10MIN PRN IV SEVERE PAIN; Start 11/09/16 at 08:15; Stop 11/09/16 at 15:25; Status DC Ondansetron HCl (Zofran) 4 mg PRN Q6HRS PRN IV NAUSEA/VOMITING; Start 11/09/16 at 08:15; Stop 11/09/16 at 15:25; Status DC Ondansetron HCl (Zofran) 4 mg STK-MED ONCE .ROUTE ; Start 11/09/16 at 09:12; Stop 11/09/16 at 09:13; Status DC Prochlorperazine Edisylate (Compazine) 5 mg PACU PRN PRN IV NAUSEA, MRX1 Last administered on 11/09/16 11:50; Start 11/09/16 at 08:15; Stop 11/09/16 at 15:25; Status DC Propofol 20 ml @ As Directed STK-MED ONCE IV ; Start 11/09/16 at 09:12; Stop 11/09 at 09:13; Status DC Ringer's Solution 1,000 ml @ 0 mls/hr Q0M IV Last administered on 11/09/16 09: 20; Start 11/09/16 at 08:04; Stop 11/09/16 at 20:03 Sevoflurane (Ultane) 30 ml STK-MED ONCE IH ; Start 11/09/16 at 12:27; Stop at 12:28; Status DC Comment Review of Relevant I have reviewed the following items benjamin (where applicable) has been applied. TETO HADLEY MD Nov 09, 2016 15:31
[2016-11-09] MEDS ORDERED: predniSONE 10 MG TABLET PO SCH (16:00)
[2016-11-09] MEDS: predniSONE 10 MG TABLET PO SCH (17:00)
[2016-11-09] MEDS: METOPROLOL SUCC 24HR ER 25 MG TAB.ER.24H. PO SCH (17:00)
[2016-11-09] MEDS ORDERED: amLODIPine BESYLATE 5 MG TABLET PO SCH (21:00)
[2016-11-10 03:29] VITALS: BP 124/76
[2016-11-10] MEDS: HEPARIN PF for SUB-Q USE 5,000 UNIT/0.5 ML VIAL. SQ SCH ×2 (05:13→15:17)
[2016-11-10 07:20] VITALS: BP 130/72
[2016-11-10] MEDS: METOPROLOL SUCC 24HR ER 25 MG TAB.ER.24H. PO SCH (09:00)
[2016-11-10] MEDS: PSYLLIUM HUSK (SUGAR FREE) 1 PKT PACKET PO SCH (09:09)
[2016-11-10 10:53] VITALS: BP 136/71
[2016-11-10] MEDS ORDERED: AMLO5TAB2 PO (11:17)
[2016-11-10] MEDS ORDERED: PRED-220 PO (11:17)
--- NOTE | 2016-11-10 12:12 | PDOC ---
PROGRESS NOTES Subjective Subjective doing well, feeling better Objective Objective Vital Signs Date Time Temp Pulse Resp B/P (MAP) Pulse Ox O2 Delivery O2 Flow Rate FiO2 11/10/16 10:53 97.7 85 16 136/71 (92) 97 Room Air 97.7 11/09/16 11:48 10 Physical Exam Physical Exam incision looks good, good forehead muscle movement Assessment Assessment Problems Medical Problems: (1) Headache Status: Acute Plan Plan of Care S/P L temp artery biopsy, await path, incision looks good; I will sign off Comment Review of Relevant I have reviewed the following items benjamin (where applicable) has been applied. Labs Laboratory Tests Test 11/09/16 04:30 White Blood Count 6.8 x10^3/uL (4.0-11.0) Red Blood Count 4.34 x10^6/uL (3.50-5.40) Hemoglobin 11.9 g/dL (12.0-15.5) Hematocrit 33.6 % (36.0-47.0) Mean Corpuscular Volume 77 fL (79-100) Mean Corpuscular Hemoglobin 27 pg (25-35) Mean Corpuscular Hemoglobin Concent 35 g/dL (31-37) Red Cell Distribution Width 18.5 % (11.5-14.5) Platelet Count 196 x10^3/uL (140-400) Neutrophils (%) (Auto) 46 % (31-73) Lymphocytes (%) (Auto) 46 % (24-48) Monocytes (%) (Auto) 6 % (0-9) Eosinophils (%) (Auto) 1 % (0-3) Basophils (%) (Auto) 1 % (0-3) Neutrophils # (Auto) 3.2 x10^3uL (1.8-7.7) Lymphocytes # (Auto) 3.1 x10^3/uL (1.0-4.8) Monocytes # (Auto) 0.4 x10^3/uL (0.0-1.1) Eosinophils # (Auto) 0.0 x10^3/uL (0.0-0.7) Basophils # (Auto) 0.1 x10^3/uL (0.0-0.2) Sodium Level 143 mmol/L (136-145) Potassium Level 3.7 mmol/L (3.5-5.1) Chloride Level 108 mmol/L (98-107) Carbon Dioxide Level 28 mmol/L (21-32) Anion Gap 7 (6-14) Blood Urea Nitrogen 11 mg/dL (7-20) Creatinine 0.6 mg/dL (0.6-1.0) Estimated GFR (Cockcroft-Gault) 118.9 Glucose Level 82 mg/dL (70-99) Calcium Level 8.4 mg/dL (8.5-10.1) Medications Current Medications Sodium Chloride 500 ml @ 500 mls/hr 1X ONCE IV Last administered on 11/07/16 14:25; Start 11/07/16 at 14:00; Stop 11/07/16 at 14:59; Status DC Hydromorphone HCl (Dilaudid) 0.5 mg PRN Q30MIN PRN IV SEVERE PAIN Last administered on 11/07/16 14:24; Start 11/07/16 at 13:45; Stop 11/07/16 at 16:07; Status DC Ondansetron HCl (Zofran) 4 mg 1X ONCE IV Last administered on 11/07/16 15:46; Start 11/07/16 at 15:45; Stop 11/07/16 at 15:46; Status DC Ondansetron HCl (Zofran) 4 mg PRN Q8HRS PRN IV NAUSEA/VOMITING; Start 11/07/16 at 16:00; Stop 11/08/16 at 15:59; Status DC Morphine Sulfate 2 mg PRN Q2HR PRN IV PAIN; Start 11/07/16 at 16:00; Stop at 15:59; Status DC Sodium Chloride 1,000 ml @ 125 mls/hr Q8H IV Last administered on 11/08/16 14: 00; Start 11/07/16 at 16:00; Stop 11/08/16 at 15:59; Status DC Diltiazem HCl (Cardizem 24hr Cd) 120 mg DAILY PO ; Start 11/08/16 at 09:00; Stop 11/08/16 at 09:30; Status DC Acetaminophen (Tylenol) 650 mg PRN Q6HRS PRN PO FEVER; Start 11/07/16 at 16:15 Ondansetron HCl (Zofran) 4 mg PRN Q6HRS PRN IV NAUSEA/VOMITING; Start 11/07/16 at 16:15 Morphine Sulfate 2 mg PRN Q2HR PRN IV PAIN; Start 11/07/16 at 16:15 Tramadol HCl (Ultram) 50 mg PRN Q6HRS PRN PO PAIN; Start 11/07/16 at 16:15 Hydralazine HCl (Apresoline) 10 mg PRN Q4HRS PRN IVP ELEVATED BP, SEE COMMENTS ; Start 11/07/16 at 16:15 Docusate Sodium (Colace) 100 mg PRN DAILY PRN PO CONSTIPATION; Start 11/07/16 at 16:15 Heparin Sodium (Porcine) (Heparin Sq) 5,000 unit Q8HRS SQ Last administered on 11/10/16 05:13; Start 11/07/16 at 22:00 Prednisone (Prednisone) 30 mg DAILY PO ; Start 11/07/16 at 17:30; Stop 11/07/16 at 17:47; Status DC Famotidine (Pepcid) 20 mg QHS PO ; Start 11/07/16 at 21:00; Stop 11/08/16 at 09:53 ; Status DC Amlodipine Besylate (Norvasc) 5 mg HS PO Last administered on 11/08/16 21:29; Start 11/08/16 at 21:00; Stop 11/09/16 at 15:33; Status DC Psyllium Hydrophilic Mucilloid (Metamucil Fiber Packet) 1 pkt DAILY PO Last administered on 11/10/16 09:09; Start 11/08/16 at 10:00 Ondansetron HCl (Zofran) 4 mg PRN Q6HRS PRN IV NAUSEA/VOMITING; Start 11/09/16 at 08:15; Stop 11/09/16 at 15:25; Status DC Fentanyl Citrate (Fentanyl 2ml Vial) 25 mcg PRN Q5MIN PRN IV MILD PAIN; Start 11/09/16 at 08:15; Stop 11/09/16 at 15:24; Status DC Fentanyl Citrate (Fentanyl 2ml Vial) 50 mcg PRN Q5MIN PRN IV MODERATE PAIN; Start 11/09/16 at 08:15; Stop 11/09/16 at 15:24; Status DC Morphine Sulfate 1 mg PRN Q10MIN PRN IV SEVERE PAIN; Start 11/09/16 at 08:15; Stop 11/09/16 at 15:25; Status DC Ringer's Solution 1,000 ml @ 0 mls/hr Q0M IV Last administered on 11/09/16 09: 20; Start 11/09/16 at 08:04; Stop 11/09/16 at 20:03; Status DC Lidocaine HCl 2 ml PRN 1X PRN ID PRIOR TO IV START; Start 11/09/16 at 08:15; Stop 11/09/16 at 15:24; Status DC Hydromorphone HCl (Dilaudid) 0.5 mg PRN Q10MIN PRN IV SEV PAIN, Second choice; Start 11/09/16 at 08:15; Stop 11/09/16 at 15:24; Status DC Prochlorperazine Edisylate (Compazine) 5 mg PACU PRN PRN IV NAUSEA, MRX1 Last administered on 11/09/16 11:50; Start 11/09/16 at 08:15; Stop 11/09/16 at 15:25; Status DC Dexamethasone Sodium Phosphate (Decadron) 20 mg STK-MED ONCE .ROUTE ; Start 11/09 at 09:12; Stop 11/09/16 at 09:13; Status DC Ondansetron HCl (Zofran) 4 mg STK-MED ONCE .ROUTE ; Start 11/09/16 at 09:12; Stop 11/09/16 at 09:13; Status DC Propofol 20 ml @ As Directed STK-MED ONCE IV ; Start 11/09/16 at 09:12; Stop 11/09 at 09:13; Status DC Lidocaine HCl (Lidocaine Pf 2% Vial) 5 ml STK-MED ONCE .ROUTE ; Start 11/09/16 at 09:12; Stop 11/09/16 at 09:13; Status DC Bupivacaine HCl/ Epinephrine Bitart (Sensorcain-Mpf Epi 0.5%-1:[id number]) 10 ml STK -MED ONCE .ROUTE Last administered on 11/09/16 10:58; Start 11/09/16 at 10:01; Stop 11/09/16 at 10:02; Status DC Ephedrine Sulfate 50 mg STK-MED ONCE IV ; Start 11/09/16 at 10:54; Stop 11/09/16 at 10:55; Status DC Acetaminophen/ Hydrocodone Bitart (Lortab 5/325) 1 tab PRN Q4HRS PRN PO PAIN; Start 11/09/16 at 11:45 Sevoflurane (Ultane) 30 ml STK-MED ONCE IH ; Start 11/09/16 at 12:27; Stop at 12:28; Status DC Prednisone (Prednisone) 30 mg DAILY PO ; Start 11/09/16 at 16:00; Status Cancel Prednisone (Prednisone) 30 mg DAILY PO ; Start 11/09/16 at 17:00 Amlodipine Besylate (Norvasc) 10 mg HS PO Last administered on 11/09/16t 20:55; Start 11/09/16 at 21:00 Metoprolol Succinate (Toprol Xl) 25 mg DAILY PO ; Start 11/09/16 at 17:00 Active Scripts Active Prednisone 10 Mg Tablet 30 Mg PO DAILY 5 Days Amlodipine Besylate 5 Mg Tablet 10 Mg PO HS 30 Days Reported Metamucil (Psyllium Husk) 0.52 Gm Capsule 0.52 Gm PO DAILY Vitals/I & O Vital Sign - Last 24 Hours 11/09/16 11/09/16 11/09/16 11/09/16 12:18 12:28 12:40 12:55 Temp 99.3 99.3 97.4 97.5 99.3 99.3 97.4 97.5 Pulse 72 73 78 Resp 16 16 16 B/P (MAP) 145/78 147/80 (102) 141/73 (95) Pulse Ox 95 97 97 O2 Delivery Room Air Room Air Room Air 11/09/16 11/09/16 11/09/16 11/09/16 13:10 13:25 13:55 14:25 Temp 97.6 97.5 97.6 97.5 Pulse 74 75 76 81 Resp 16 16 16 18 B/P (MAP) 141/73 (95) 142/75 (97) 148/81 (103) 152/79 (103) Pulse Ox 98 97 96 93 O2 Delivery Room Air Room Air Room Air Room Air 11/09/16 11/09/16 11/09/16 11/09/16 15:25 16:25 19:43 20:00 Temp 98.6 98.6 Pulse 75 81 91 Resp 18 18 18 B/P (MAP) 143/77 (99) 152/79 (103) 137/75 (95) Pulse Ox 98 93 96 O2 Delivery Room Air Room Air Room Air Room Air 11/09/16 11/09/16 11/10/16 11/10/16 20:55 23:29 03:29 07:20 Temp 98.0 98.2 97.7 98.0 98.2 97.7 Pulse 91 81 88 77 Resp 18 18 18 B/P (MAP) 137/75 120/65 (83) 124/76 (92) 130/72 (91) Pulse Ox 96 95 95 O2 Delivery Room Air Room Air Room Air 11/10/16 11/10/16 08:00 10:53 Temp 97.7 97.7 Pulse 85 Resp 16 B/P (MAP) 136/71 (92) Pulse Ox 97 O2 Delivery Room Air Room Air LILBIETH SANFORD MD Nov 10, 2016 12:12
[2016-11-10] MEDS: predniSONE 10 MG TABLET PO SCH (12:53)
--- NOTE | 2016-11-10 13:04 | PDOC3 ---
Discharge Summary IPC Date of Admission: Nov 07, 2016 Discharge Date: Nov 10, 2016 Admitting Diagnosis intractable headache, 2/2 migraine flare vs. left temporal arteritis HTN glaucoma diverticulosis h/o Left BCa post sx chronic headache GERD leukocytosis, reactive Problems: Final Diagnosis CONSULTS neuro sx Procedures left temporal A bx Brief Hospital Course 71-year-old female presenting to the emergency department today for headache. Pt said she has been having headache for years , following with dr. Giron,worse in the past week. pt got dilaudid in ER which made her feel drowsy and not willing to talk to me much. The headache is usually on the top of head, or left side. Now the pain is 6/10, tight. She also feels left face numbness. right fingers some numbness, otherwise no blurry vision or other neurologic deficit. . She denies fevers chills or neck stiffness. No V, diarrhea, cough, chest pain , or sob. + nausea. pt usually only takes tylenol for headache, and codein makes her rash. head ct NEG. Pt underwent left temporal A bx, path pending. ESR 54. prednisone started. pt feels headache much better dc home with increased amlodipine 10mg daily, cont prednisone 30mg daily. fu with neuro this or thursday for path. dc time 35min General: Alert, Oriented X3, Cooperative Heart: Regular rate, Normal S1, Normal S2 Lungs: Clear Abdomen: Normal bowel sounds, Soft Extremities: No clubbing, No cyanosis Skin: No rashes, No breakdown Problems: Disposition home CONDITION AT DISCHARGE: Improved Diet regular Scheduled Amlodipine Besylate (Amlodipine Besylate), 10 MG PO HS Prednisone (Prednisone), 30 MG PO DAILY Psyllium Husk (Metamucil), 0.52 GM PO DAILY, (Reported) Discontinued Medications Amlodipine Besylate (Amlodipine Besylate), 5 MG PO HS, (Reported) Follow Up neuro this week ELI BURNS MD Nov 10, 2016 13:04
[2016-11-10 14:47] VITALS: BP 147/82
--- NOTE | 2016-11-10 15:52 | PDOC ---
PROGRESS NOTES Assessment Assessment Worsening of headaches. Chronic pain in left orbital area. Temporal A arteritis? Chronic headaches. HTN Glaucoma. Left retinal detachment, partial? Anxiety. Elevated ESR, 53. RECOMMENDATIONS/PLAN: Pain control. Consulted Surgery for left temporal A biopsy which performed on 11/09/16. Pathology reports still pending. Trial treatment with steroid can be started after biopsy. Discontinue it if biopsy is negative. 30 mg daily started on 11/09/16. Check BP q6h and glucose bid. BP control, no high than 140/90 mmHg. FU with PCP. 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 FU with Dr. Giron in Neurology Clinic in 2-4 weeks. HISTORY OF THE PRESENT ILLNESS: 71-y-old AA female patient with Hx of chronic pain in her left frontal and temporal head and pain behind left orbital area. She received extensive evaluation including brain MRI but no evidence of CVA or brain tumor.She was seen by ophthalmology and was said to have cataract and partial retinal detachment (?). She has increased pain in her left side of head and elevated ESR so temporal A arteritis needs to be ruled. She had left side temporal A biopsy on 11/09/16. She is doing fine after biopsy on 11/09 and 11/10. Past Medical History Cardiovascular: HTN Past Surgical History left Breast post lumpectomy Family History Hypertension Social History Smoke: No ALCOHOL: none Drugs: None ALLERGY: Reviewed. REVIEW OF SYSTEMS: Constitutional: No malnutrition, weight loss, cachexia. Head: No traumatic brain or head injury. Skin: No edema, or rash. Ear: No infection. Eyes: No vision loss or color blindness. Nose: No bleeding or purulent discharges. Hearing: No hearing decrease. Neck: No injury. Cardiac: HTN. Pulmonary: No COPD. GI: No GI ulcer, GI bleeding. Urinary/genital: UTI. Endocrinologic: No cousin face, craniofacial dysmorphism, polydactyly, goiter. Skeletomuscular: No muscular atrophy, deformity. Neurological: see HP. Psychiatric: Denies drug use/abuse. Otherwise, not [id number] review of systems. PHYSICAL EXAMINATION: General appearance is in no acute distress. HEENT: Normocephalic and nontraumatic. Eyes, nose, ears, and throat are unremarkable. Neck is supple. No lymphadenopathy. No bruits are heard over the carotid artery. No crepitus. Cardiovascular: S1, S2, regular rate and rhythm. Pulmonary: Clear to auscultation bilaterally. Abdomen: Bowel sounds are positive. Abdomen is soft, nontender, and nondistended. Extremities: No rash, lesions, or edema. No restriction of range of motion NEUROLOGICAL EXAMINATION: Alert Oriented to time, place and person. PERRL. EOMI. CN: no focal findings. Muscle tone: within normal. Muscle strength: 5- DTR: 2 Plantar reflex: Flexor response bilaterally Gait: at her baseline normal. Sensory exam: no abnormal findings. No acute cerebellar signs elicited. F-T-N test accurate. Objective Objective Vital Signs Date Time Temp Pulse Resp B/P (MAP) Pulse Ox O2 Delivery O2 Flow Rate FiO2 11/10/16 14:47 97.7 76 18 147/82 (103) 99 Room Air 97.7 11/09/16 11:48 10 Vitals Signs Vitals VS - Last 72 Hours, by Label Date Time Temp Pulse Resp B/P (MAP) Pulse Ox O2 Delivery O2 Flow Rate FiO2 11/10/16 14:47 97.7 76 18 147/82 (103) 99 Room Air 97.7 11/10/16 10:53 97.7 85 16 136/71 (92) 97 Room Air 97.7 11/10/16 08:00 Room Air 11/10/16 07:20 97.7 77 18 130/72 (91) 95 Room Air 97.7 11/10/16 03:29 98.2 88 18 124/76 (92) 95 Room Air 98.2 11/09/16 23:29 98.0 81 18 120/65 (83) 96 Room Air 98.0 11/09/16 20:55 91 137/75 11/09/16 20:00 Room Air 11/09/16 19:43 98.6 91 18 137/75 (95) 96 Room Air 98.6 11/09/16 16:25 81 18 152/79 (103) 93 Room Air 11/09/16 15:25 75 18 143/77 (99) 98 Room Air 11/09/16 14:25 81 18 152/79 (103) 93 Room Air 11/09/16 13:55 76 16 148/81 (103) 96 Room Air 11/09/16 13:25 97.5 75 16 142/75 (97) 97 Room Air 97.5 11/09/16 13:10 97.6 74 16 141/73 (95) 98 Room Air 97.6 11/09/16 12:55 97.5 78 16 141/73 (95) 97 Room Air 97.5 11/09/16 12:40 97.4 73 16 147/80 (102) 97 Room Air 97.4 11/09/16 12:28 99.3 99.3 11/09/16 12:18 99.3 72 16 145/78 95 Room Air 99.3 11/09/16 12:03 76 16 148/78 100 Room Air 11/09/16 11:48 Room Air 11/09/16 11:48 76 14 151/79 100 Simple Mask 10 11/09/16 11:33 97.7 89 14 147/76 100 Simple Mask 10 97.7 11/09/16 11:33 Mask 10 11/09/16 09:16 98.1 83 16 140/72 97 Room Air 98.1 11/09/16 08:00 Room Air 11/09/16 07:12 98.8 84 16 137/86 (103) 97 Room Air 98.8 Medication Medications Current Medications Amlodipine Besylate (Norvasc) 10 mg HS PO Last administered on 11/09/16 20:55; Start 11/09/16 at 21:00 Metoprolol Succinate (Toprol Xl) 25 mg DAILY PO ; Start 11/09/16 at 17:00 Prednisone (Prednisone) 30 mg DAILY PO ; Start 11/09/16 at 16:00; Status Cancel Prednisone (Prednisone) 30 mg DAILY PO Last administered on 11/10/16 12:53; Start 11/09/16 at 17:00 Comment Review of Relevant I have reviewed the following items benjamin (where applicable) has been applied. TETO GIRON MD Nov 10, 2016 15:52
--- NOTE | 2016-11-12 10:53 | PATHOLOGY ---
PATHOLOGY REPORT * * * * * * * * FINAL DIAGNOSIS: Left temporal artery biopsy: - Focal recent periarterial and intraluminal hemorrhage, likely due to surgery. - There is no evidence of temporal arteritis present. (SHA:dimas; 11/12/2016) REPORT ELECTRONICALLY SIGNED BY: Johan Mancia M.D. DATE/TIME: 11/12/2016 10:53 * * * * * * * * GROSS PATHOLOGY: Received in formalin labeled "Mariama Hollingsworth, left temporal artery biopsy," is a 2.3 cm segment of whitish-bustamante tubular soft tissue measuring 0.2 cm in diameter. The tissue is submitted in toto in cassette A1. (TSD; 11/11/2016) INITIAL CPT CODE(S): A; 97389 Professional services performed [place] [address] Technical services performed by [facility] at [address] [place] [address] [address], [place] [address]. SPECIMEN(S) RECEIVED: A.Left temporal artery biopsy CLINICAL HISTORY: None provided PATIENT: MARIAMA HOLLINGSWORTH /AGE: 104/05/1945 (Age: 71) PATIENT #: [id number] ALT CASE #: SPECIMEN COLLECTION DATE: 11/07/2016 SPECIMEN RECEIVED DATE: 11/11/2016 [facility] - [address] [place] [address] - PHONE: [phone] * * * END OF REPORT * * *
== END 2016-11-10 16:20 | disposition home or self-care (01) ==
LOC: ER 12:42 → 6 SOUTH 16:00
PROVIDERS: ADMIT Internal Medicine; ATTEND Internal Medicine
DX: R51 Headache (principal); G89.29 Other chronic pain; I10 Essential (primary) hypertension; H40.9 Unspecified glaucoma; D72.829 Elevated white blood cell count, unspecified; F41.9 Anxiety disorder, unspecified; H26.9 Unspecified cataract; K57.90 Diverticulosis of intestine, part unspecified, without perforation or abscess without bleeding; H33.20 Serous retinal detachment, unspecified eye; K21.9 Gastro-esophageal reflux disease without esophagitis; Z82.49 Family history of ischemic heart disease and other diseases of the circulatory system; Z90.710 Acquired absence of both cervix and uterus
CPT/HCPCS: 36415; 37609; 70450; 80048; 85025; 85610; 85651; 96372; 96374; 96375; 99285; C1769; G0378; J0780; J1100; J1170; J1642; J2405; J2704; J3490; J7030; J7040; J7512; 88305; G0379; J7120; J2001

== ENCOUNTER 2016-11-21 17:20 | Emergency (ER) | payer OTHER ==
[~2016-11-21] VITALS: Ht 157.5 cm; Wt 86.2 kg
[~2016-11-21 17:20] MED LIST changes: +AMLO5TAB2 PO; +PRED-220 PO
[2016-11-21] MEDS ORDERED: IV NORMAL SALINE 500ML BAG 500 ML IV ONE (18:00)
[2016-11-21] MEDS ORDERED: ONDANSETRON PF 4 MG/2 ML VIAL. IV ONE (18:00)
[2016-11-21] MEDS ORDERED: KETOROLAC 30 MG/ML INJ. IV ONE (18:00)
[2016-11-21] MEDS ORDERED: diphenhydrAMINE 50 MG/ML VIAL IVP ONE (18:00)
[2016-11-21 18:14] LABS: BASO # 0.1 x10^3/uL (0.0-0.2); BASO % 1 % (0-3); EOS % 1 % (0-3); HEMOGLOBIN 12.9 g/dL (12.0-15.5); LYMPH # 3.6 x10^3/uL (1.0-4.8); LYMPH % 36 % (24-48); MEAN CORPUSCULAR HEMOGLOBIN 27 pg (25-35); MEAN CORPUSCULAR HGB CONC 34 g/dL (31-37); MEAN CORPUSCULAR VOLUME 79 fL (79-100); MONO % 5 % (0-9); NEUT % 58 % (31-73); PLATELET COUNT 203 x10^3/uL (140-400); RED BLOOD COUNT 4.79 x10^6/uL (3.50-5.40); RED CELL DISTRIBUTION WIDTH 19.1 % (11.5-14.5); WHITE BLOOD COUNT 10.2 x10^3/uL (4.0-11.0)
[2016-11-21 18:32] LABS: CALCIUM 9.1 mg/dL (8.5-10.1); CREATININE 0.7 mg/dL (0.6-1.0); GFR 99.5; POTASSIUM 3.8 mmol/L (3.5-5.1)
[2016-11-21 18:57] LABS: BILIRUBIN,URINE NEGATIVE (NEG); GLUCOSE,URINE NEGATIVE (NEG); NITRITE,URINE NEGATIVE (NEG); PH,URINE 6.5; PROTEIN,URINE NEGATIVE (NEG-TRACE); UROBILINOGEN,URINE 0.2 mg/dL (0.2 mg/dL)
[2016-11-21 19:11] LABS: BACTERIA,URINE FEW /HPF (0-FEW); RBC,URINE 0 /HPF (0-2); SQUAMOUS EPITHELIAL CELL,UR FEW /LPF
[2016-11-21 19:30] VITALS: BP 137/81
--- NOTE | 2016-11-21 19:39 | PHYS DOC ---
Past Medical History Past Medical History: Arthritis, Cancer, Diverticulosis, GERD, Glaucoma, Hypertension, Other Additional Past Medical Histor: Left breast ca, right upper lung nodule , CHRONIC HEADACHE Past Surgical History: Cancer Surgery, Hysterectomy Additional Past Surgical Histo: LEFT MASECTOMY Alcohol Use: None Drug Use: None Adult General Chief Complaint Chief Complaint: HEADACHE HPI HPI Patient is a 71 year old female who presents with headache. The patient states she has had headaches for years, worse this month particularly over the past 2 weeks. Headache is dull/throbbing, left sided, not sudden in onset, not the worst headache of her life. Denies associated symptoms including fevers/ chills, vision changes, neck stiffness, chest pain, extremity numbness/weakness , nausea/vomiting. Headache is same as previous headaches but has never received a diagnosis. She underwent temporal artery biopsy earlier this month with negative result on path report. She has follow up with Dr. Giron in 3 days. She did not take any medications at home for this. She does have history of hypertension. Review of Systems Review of Systems Constitutional: Denies fever or chills Eyes: Denies change in visual acuity HENT: Denies nasal congestion or sore throat Respiratory: Denies cough or shortness of breath Cardiovascular: Denies chest pain or edema GI: Denies abdominal pain, nausea, vomiting Musculoskeletal: Denies back pain or joint pain Integument: Denies rash or skin lesions Neurologic: Reports headache, denies focal weakness or sensory changes Current Medications Current Medications Current Medications Medications (Trade) Dose Ordered Sig/Vicente Start Time Stop Time Status Last Admin Dose Admin Diphenhydramine HCl (Benadryl) 25 mg 1X ONCE 11/21/16 18:00 11/21/16 18:01 DC 11/21/16 18:16 25 MG Ketorolac Tromethamine (Toradol) 15 mg 1X ONCE 11/21/16 18:00 11/21/16 18:01 DC 11/21/16 18:16 15 MG Ondansetron HCl (Zofran) 4 mg 1X ONCE 11/21/16 18:00 11/21/16 18:01 DC 11/21/16 18:16 4 MG Sodium Chloride 500 ml @ 0 mls/hr 1X ONCE 11/21/16 18:00 11/21/16 18:01 DC 11/21/16 18:15 999 MLS/HR Allergies Allergies Allergies Coded Allergies Type Severity Reaction Last Updated Verified codeine Allergy Intermediate Rash 11/09/16 Yes Physical Exam Physical Exam Constitutional: obese, no acute distress, non-toxic appearance. HENT: Normocephalic, atraumatic, bilateral external ears normal, oropharynx moist, nose normal. Eyes: PERRLA, EOMI, conjunctiva normal, no discharge. Neck: supple, no stridor. no meningismus Cardiovascular: RRR, no murmurs, no edema. Lungs & Thorax: LCTAB, no wheezing, no respiratory distress. Abdomen: soft, nontender, nondistended. Skin: Warm, dry, no erythema, no rash. Back: No tenderness. Extremities: No tenderness, no edema. Neurologic: Alert and oriented X 3, CN2-12 grossly intact, symmetric strength/ sensation to upper & lower extremities, no focal deficits noted. Psychologic: Affect normal, judgement normal, mood normal. Current Patient Data Vital Signs Vital Signs Date Time Temp Pulse Resp B/P (MAP) Pulse Ox O2 Delivery O2 Flow Rate FiO2 11/21/16 19:30 88 18 137/81 (99) 98 Room Air 11/21/16 17:35 98.5 98.5 Lab Values Laboratory Tests Test 11/21/16 17:46 11/21/16 18:50 White Blood Count 10.2 x10^3/uL (4.0-11.0) Red Blood Count 4.79 x10^6/uL (3.50-5.40) Hemoglobin 12.9 g/dL (12.0-15.5) Hematocrit 38.0 % (36.0-47.0) Mean Corpuscular Volume 79 fL (79-100) Mean Corpuscular Hemoglobin 27 pg (25-35) Mean Corpuscular Hemoglobin Concent 34 g/dL (31-37) Red Cell Distribution Width 19.1 % (11.5-14.5) H Platelet Count 203 x10^3/uL (140-400) Neutrophils (%) (Auto) 58 % (31-73) Lymphocytes (%) (Auto) 36 % (24-48) Monocytes (%) (Auto) 5 % (0-9) Eosinophils (%) (Auto) 1 % (0-3) Basophils (%) (Auto) 1 % (0-3) Neutrophils # (Auto) 6.0 x10^3uL (1.8-7.7) Lymphocytes # (Auto) 3.6 x10^3/uL (1.0-4.8) Monocytes # (Auto) 0.5 x10^3/uL (0.0-1.1) Eosinophils # (Auto) 0.0 x10^3/uL (0.0-0.7) Basophils # (Auto) 0.1 x10^3/uL (0.0-0.2) Sodium Level 137 mmol/L (136-145) Potassium Level 3.8 mmol/L (3.5-5.1) Chloride Level 103 mmol/L (98-107) Carbon Dioxide Level 29 mmol/L (21-32) Anion Gap 5 (6-14) L Blood Urea Nitrogen 14 mg/dL (7-20) Creatinine 0.7 mg/dL (0.6-1.0) Estimated GFR (Cockcroft-Gault) 99.5 Glucose Level 99 mg/dL (70-99) Calcium Level 9.1 mg/dL (8.5-10.1) Urine Collection Type Unknown Urine Color Yellow Urine Clarity Clear Urine pH 6.5 Urine Specific [place] <=1.005 Urine Protein Negative mg/dL (NEG-TRACE) Urine Glucose (UA) Negative mg/dL (NEG) Urine Ketones (Stick) Negative mg/dL (NEG) Urine Blood Negative (NEG) Urine Nitrite Negative (NEG) Urine Bilirubin Negative (NEG) Urine Urobilinogen Dipstick 0.2 mg/dL (0.2 mg/dL) Urine Leukocyte Esterase Trace (NEG) Urine RBC 0 /HPF (0-2) Urine WBC 1-4 /HPF (0-4) Urine Squamous Epithelial Cells Few /LPF Urine Bacteria Few /HPF (0-FEW) Laboratory Tests 11/21/16 17:46 Laboratory Tests 11/21/16 17:46 EKG EKG [] Radiology/Procedures Radiology/Procedures [] Course & Med Decision Making Course & Med Decision Making Pertinent Labs and Imaging studies reviewed. (See chart for details) The patient presents with headache. She is well appearing, has mildly elevated blood pressure, here with same chronic headache. No focal findings on neuro exam. Reviewed results from temporal artery biopsy. I attempted to contact Dr. Giron to discuss next steps in management but she was not clinical rehabilitation specialist, Dr. Stack agrees with follow up in clinic next week. Gave toradol, zofran, benadryl here. She felt better after treatment. Recommend rest, hydration, over the counter meds for headache, follow up with Dr. Giron in the neurology clinic within 2-3 days. Come back for sudden onset severe headache or worst headache of her life, focal neuro deficit, any otherwise worsening condiiton. Discharged home in stable condition. [] Dragon Disclaimer Dragon Disclaimer This electronic medical record was generated, in whole or in part, using a voice recognition dictation system. Departure Departure Impression: Primary Impression: Headache Disposition: HOME, SELF-CARE Condition: STABLE Referrals: TETO GIRON MD Patient Instructions: General Headache Without Cause, [id number] Additional Instructions: You were seen in the emergency department today for headache. You got better with treatment here. Please rest, take [id number] medication as needed, take prescription medications as prescribed by your doctor. Follow-up in the neurology clinic with Dr. Giron on Thursday. Return to the emergency department for high fever, worst headache of your life, sudden onset severe headache, numbness or weakness in arms or legs, any otherwise worsening condition. KEYUR BOSE MD Nov 21, 2016 19:39
== END 2016-11-21 20:11 | disposition home or self-care (01) ==
LOC: ER 17:20
DX: R51 Headache (principal); G89.29 Other chronic pain; K21.9 Gastro-esophageal reflux disease without esophagitis; I10 Essential (primary) hypertension; M19.90 Unspecified osteoarthritis, unspecified site; Z88.5 Allergy status to narcotic agent
CPT/HCPCS: 36415; 80048; 81001; 85025; 87086; 96361; 96374; 96375; 99284; J1200; J1885; J2405; J7040

== ENCOUNTER 2017-02-02 17:37 | Emergency (ER) | payer OTHER ==
--- NOTE | 2017-02-02 19:22 | RAD ---
CT Head W/O Contrast: History: headache, htn Comparison: November 07, 2016 Axial images were obtained without contrast. The bustamante and white matter appears normal and symmetrical for the patients age. There is no mass effect, extraaxial fluid collections or hydrocephalus. There is no gross bleed. There is no focal loss of bustamante-white matter distinction to suggest acute ischemia, i.e. stroke. Impression: No acute findings. RS Compliance Statement: One or more of the following individualized dose reduction techniques were utilized for this examination: 1. Automated exposure control 2. Adjustment of the mA and/or kV according to patient size 3. Use of iterative reconstruction technique Electronically signed by: Stephen Huddleston III, MD (02/02/2017 7:19 PM) [facility]
--- NOTE | 2017-02-02 19:43 | PHYS DOC ---
Past Medical History Past Medical History: Arthritis, Cancer, Diverticulosis, GERD, Glaucoma, Hypertension, Other Additional Past Medical Histor: Left breast ca, right upper lung nodule , CHRONIC HEADACHE Past Surgical History: Cancer Surgery, Hysterectomy Additional Past Surgical Histo: LEFT MASECTOMY Alcohol Use: None Drug Use: None Adult General Chief Complaint Chief Complaint: HYPERTENSION HPI HPI Patient is a 71 year old female who presents with headache. Patient reports dull throbbing generalized headache today. not the worst headache of her life, not sudden in onset. She has frequent headaches, states this is similar. She was concerned because her systolic blood pressure was 160 when she checked it at home. She has checked her blood pressure at least 6 times in the past 2 days. She denies vision changes (though currently being treated for glaucoma), nausea/vomiting, chest pain, shortness of breath, extremity numbness/weakness, lower extremity edema. She takes amlodipine for hypertension & reports compliance. Review of Systems Review of Systems Constitutional: Denies fever or chills Eyes: Denies change in visual acuity HENT: Denies nasal congestion or sore throat Respiratory: Denies cough or shortness of breath Cardiovascular: Denies chest pain or edema GI: Denies abdominal pain, nausea, vomiting Musculoskeletal: Denies back pain or joint pain Integument: Denies rash or skin lesions Neurologic: Reports headache, denies focal weakness or sensory changes All other systems were reviewed and found to be within normal limits, except as documented in this note. Allergies Allergies Allergies Coded Allergies Type Severity Reaction Last Updated Verified codeine Allergy Intermediate Rash 11/09/16 Yes hydromorphone Allergy Unknown Body went limp, incontinent of urine,vomited. Yes Physical Exam Physical Exam Constitutional: Well developed, well nourished, no acute distress, non-toxic appearance. HENT: Normocephalic, atraumatic, bilateral external ears normal, oropharynx moist, nose normal. Eyes: PERRLA, EOMI, conjunctiva normal, no discharge. Neck: supple, no stridor. no meningismus Cardiovascular: RRR, no murmurs, no edema. Lungs & Thorax: LCTAB, no wheezing, no respiratory distress. Abdomen: soft, nontender, nondistended. Skin: Warm, dry, no erythema, no rash. Back: No tenderness. Extremities: No tenderness, no edema. Neurologic: Alert and oriented X 3, cranial nerves 2-12 grossly intact, symmetric strength/sensation to upper & lower extremities, no focal deficits noted. Psychologic: anxious Current Patient Data Vital Signs Vital Signs Date Time Temp Pulse Resp B/P (MAP) Pulse Ox O2 Delivery O2 Flow Rate FiO2 02/02/17 19:50 76 99 02/02/17 18:32 98.2 18 166/79 (108) Room Air 98.2 EKG EKG [] Radiology/Procedures Radiology/Procedures PROCEDURE: CT HEAD WO CONTRAST CT Head W/O Contrast: History: headache, htn Comparison: November 07, 2016 Axial images were obtained without contrast. The bustamante and white matter appears normal and symmetrical for the patients age. There is no mass effect, extraaxial fluid collections or hydrocephalus. There is no gross bleed. There is no focal loss of bustamante-white matter distinction to suggest acute ischemia, i.e. stroke. Impression: No acute findings. RS Compliance Statement: One or more of the following individualized dose reduction techniques were utilized for this examination: 1. Automated exposure control 2. Adjustment of the mA and/or kV according to patient size 3. Use of iterative reconstruction technique Electronically signed by: Nabil Garcia III, MD (02/02/2017 7:19 PM) [facility] DICTATED and SIGNED BY: NABIL GARCIA III, MD DATE: 02/02/171915[] Course & Med Decision Making Course & Med Decision Making Pertinent Labs and Imaging studies reviewed. (See chart for details) The patient presents with mildly elevated blood pressure, essentially asymptomatic although she complains of headache. We had a long discussion regarding importance of long-term blood pressure control, & lack of evidence for acutely lowering here. She did undergo head CT which was negative for acute process. Her headache was mild, & she was reassured by recommendations here. Encouraged her that she actually might feel less anxious if she checks her blood pressure less frequently at home. She has an appointment with her PCP in 2 days, which she is encouraged to keep, & could take along log of blood pressures documented in recent days. May require increased dose, additional medication, or different medication based on blood pressure at that time, but fine to have PCP manage in outpatient setting. Encouraged compliance with medication regimen. Come back for severe or sudden onset headache, chest pain, shortness of breath, focal neuro deficit, severe edema, any otherwise worsening condition. Discharged home in stable condition. [] Dragon Disclaimer Dragon Disclaimer This electronic medical record was generated, in whole or in part, using a voice recognition dictation system. Departure Departure Impression: Primary Impression: Hypertension Disposition: HOME, SELF-CARE Condition: STABLE Referrals: ELMER GONSALVES MD (PCP) Patient Instructions: Hypertension, [id number] Additional Instructions: You were seen in the emergency department today for high blood pressure. As we discussed, it is higher than the recommended range and you in follow-up with your primary care doctor for further management. We did not find any serious effects from the elevated blood pressure. As we discussed, some people become very anxious when they check their blood pressure frequently see you might try actually checking less frequently at home. If you do find it to be high you can write the number down and a log to show your primary care doctor. When you follow-up in the clinic, it may be necessary to take additional medication, switched to a different medication, or increased dose of current medications. Come back to the emergency department for severe or sudden onset headache, severe chest pain or shortness of breath, difficulty moving arms or legs, severe swelling in legs, any otherwise worsening condition. KEYUR BOSE MD Feb 02, 2017 19:43
[2017-02-02 19:50] VITALS: BP 159/79
== END 2017-02-02 19:52 | disposition home or self-care (01) ==
LOC: ER 17:37
DX: I10 Essential (primary) hypertension (principal); M19.90 Unspecified osteoarthritis, unspecified site; K21.9 Gastro-esophageal reflux disease without esophagitis; H40.9 Unspecified glaucoma; G89.29 Other chronic pain; Z88.5 Allergy status to narcotic agent; Z90.12 Acquired absence of left breast and nipple
CPT/HCPCS: 70450; 99284-25

== ENCOUNTER 2017-07-13 10:58 | Emergency (ER) | payer OTHER ==
[2017-07-13 13:26] LABS: ANION GAP 7 (6-14); BLOOD UREA NITROGEN 13 mg/dL (7-20); CALCIUM 8.5 mg/dL (8.5-10.1); CARBON DIOXIDE 30 mmol/L (21-32); CHLORIDE 105 mmol/L (98-107); CREATININE 0.7 mg/dL (0.6-1.0); GFR 99.2; GLUCOSE 86 mg/dL (70-99); POTASSIUM 4.3 mmol/L (3.5-5.1); SODIUM 142 mmol/L (136-145)
[2017-07-13 13:46] LABS: TROPONINI < 0.017 ng/mL (0.000-0.055)
== END 2017-07-13 14:15 | disposition home or self-care (01) ==
LOC: ER 10:58
DX: I10 Essential (primary) hypertension (principal); R51 Headache; R42 Dizziness and giddiness; K21.9 Gastro-esophageal reflux disease without esophagitis; G89.29 Other chronic pain; Z88.5 Allergy status to narcotic agent
CPT/HCPCS: 36415; 80048; 84484; 93005; 99285-25